=== PATIENT | male | born 1975 ===

== ENCOUNTER 2019-11-25 15:41 | Inpatient (IN) | payer SELFPAY ==
[2019-11-25] VITALS (7 sets, daily range): BP systolic 117–166; BP diastolic 75–102; PULSE 85–100; RESP 14–22; TEMP 35.7–36.6; O2SAT 100; BMI 19.3
--- NOTE | ~2019-11-25 | XR_ITS ---
EXAMINATION: XR chest 1V portable 11/25/2019 17:55 INDICATION: Chest pain. Hypertension. PROCEDURE: 2 view chest COMPARISON: No prior studies for comparison. FINDINGS: The lungs are clear. The cardiomediastinal silhouette is within normal limits. There are no pleural effusions. There is no pneumothorax suspected. IMPRESSION: 1: NO ACUTE CARDIOPULMONARY DISEASE. Reviewed, dictated and finalized at location A.
--- NOTE | ~2019-11-25 | CT_ITS ---
EXAMINATION: CT abdomen pelvis w con DATE: 11/25/2019 17:28 INDICATION: Diffuse abdominal pain TECHNIQUE: Computed tomography (CT) of the abdomen and pelvis was performed with 100 cc Omnipaque 350 intravenous contrast. The dose-length product was 255.46 mGy-cm. Automated exposure control and iter ative reconstruction technique were employed. COMPARISON: None. FINDINGS: Lung bases are unremarkable. Heart size normal. No significant vascular abnormality. There are bilateral hip arthroplasties. No lymphadenopathy. Focal fatty infiltration of the liver near the falciform ligament. The spleen, pancreas, adrenal glan ds are unremarkable. There is bilateral renal cortical scarring with mild bilateral ureterectasis. Mo derate distention of the bladder. There is a large amount of gas throughout the colon, although no ob struction. There is an ileocecal anastomosis. No free air or free fluid. No abnormal pelvic masses or fluid collections. No acute osseous abnormality. IMPRESSION: 1. Moderate bladder distention, nonspecific. Mild bilateral ureterectasis. 2: Moderate gas in the colon without obstruction, possibly ileus. Reviewed, dictated and finalized at location A.
--- NOTE | 2019-11-25 15:56 | ED.RECABL ---
HPI - Recheck/Abnormal Lab/Rx General Chief Complaint: Recheck/Abnormal Lab/Rx Stated Complaint: high blood sugar Time Seen by Provider: 11/25/19 15:53 Source: patient and family (Girlfriend) Mode of arrival: ambulatory Limitations: no limitations History of Present Illness HPI narrative: A 44 y/o male presents to the ED with c/o high blood sugar. Pt states that he has a PMHx diabetes and takes Insulin daily. The patient's girlfriend adds that he took all of his medication this morning. He reports diffuse ABD pain and diarrhea, but denies vomiting, bloody stools, and fever. He states that the diarrhea started yesterday and he had 3 episodes today. Pt had intestinal surgery in June 2019. He has a PMHx of diabetes and is a smoker. MD complaint: other (High blood sugar) Description of abnormal result: High blood sugar Associated symptoms: abdominal pain and other (Diarrhea) Treatments prior to arrival: other medications (Insulin) Related Data Home Medications Medication Instructions Recorded Confirmed gabapentin 400 mg PO TID 11/25/19 insulin detemir U-100 [Levemir 10 unit SUBCUT BID 11/25/19 U-100 Insulin] insulin glargine [Lantus U-100 12 unit SUBCUT QPM 11/25/19 Insulin] insulin lispro [Humalog U-100 0 - 5 sliding scale dose SUBCUT 11/25/19 Insulin] USEASDIRECTD insulin regular human [Novolin R 10 unit SUBCUT TID 11/25/19 Flexpen] levothyroxine 75 mcg PO DAILY 11/25/19 pantoprazole 40 mg PO QAM 11/25/19 Allergies Allergy/AdvReac Type Severity Reaction Status Date / Time No Known Allergies Allergy Verified 11/25/19 15:57 Review of Systems Review of Systems: All systems reviewed & are unremarkable except as noted in HPI and below Constitutional: Constitutional: Denies fever(s) Gastrointestinal: Gastrointestinal: Reports abdominal pain, Denies hematochezia, Reports diarrhea and Denies vomiting PMF Past Medical History Medical History (Updated 11/25/19 @ 18:15 by Lisa Chino MD) Diabetes Surgical History Surgical History (Updated 11/25/19 @ 15:59 by Christal Downey) History of intestinal surgery Social History Social History (Updated 11/25/19 @ 16:01 by Christal Downey) Smoking packs per day: 2 Smoking cigarettes per day: 40.0 Smoking status: Heavy tobacco smoker Tobacco type: cigarettes Second hand tobacco smoke exposure: Yes Substance use: current Gender identity (if verbalized by the patient): Male Exam Const: General: alert and ill appearing chronically; No diaphoretic Orientation/consciousness: patient oriented x3 Other: patient moaning in pain HENMT: Head: normocephalic and atraumatic Teeth and gingiva: abnormal tooth and associated gingiva Eyes: Conjunctivae: conjunctivae normal Pupils: Equal, round and reactive pupils present Chest: Chest palpation & inspection: normal inspection of the chest Resp: Effort & Inspection: normal respiratory effort, no retractions and no use of accessory muscles Auscultation: clear to auscultation bilaterally Cardio: Rate: regular rate Rhythm: regular rhythm Heart sounds: no murmurs GI: Inspection: non-distended Auscultation: normal bowel sounds Other: Diffuse abdominal tenderness. Course Reevaluation(s) Reevaluation #1: Patient has EKG that shows St elevation to II, III, AVF and V3, V4. Patient on arrival states he has abdominal pain and patient now reports states he has pain across his chest. I asked patient when it started and he was reluctant to answer. There is no EKG to compare. Patient is poor historian . STEMI activated since patient told me and nurse that he has chest pain. This may just be related to hyperglycemia but with patient complainting chest pain with speak with cardiology about possible STEMI Date: 11/25/19 Time: 16:50 Consultations Consultation #1: Dr. Waggoner came to ER to see patient and EKG. HE states he is not taking patient to laboratory veterinarian and this is not acute STEMI. Date:
--- NOTE | 2019-11-25 16:05 | ECG_ITS ---
Measurements Intervals Raymond Rate: 78 P: 78 HI: 218 QRS: 69 QRSD: 80 T: 79 QT: 384 QTc: 439 Interpretive Statements SINUS RHYTHM WITH FIRST DEGREE AV BLOCK CANNOT RULE OUT SEPTAL INFARCT, AGE INDETERMINATE ST ELEVATION IN ANTEROLAT/INF LEADS- PROBABLY EARLY REPOLARIZATION ABNORMAL ECG Electronically Signed On 11-25-2019 17:32:51 CDT by Ang Collins D.O.
[2019-11-25 16:11] LABS: Glucose Point of Care > 500 (65-105)
[2019-11-25] MEDS: ONDANSETRON INJ 4 MG/2 ML VIAL IV PUSH (16:25)
[2019-11-25] MEDS: LACTATED RINGERS 1,000 ML 999 ML IV CONT ×2 (16:26→17:35)
[2019-11-25] MEDS: MORPHINE SULFATE 4 MG/ML INJ IV PUSH (16:26)
[2019-11-25 16:47] LABS: Alveolar/Arterial O2 Gradient 5.4 mmHg; Base Excess ABG -4.1 mEq/l (+/-2.0); Carboxyhemoglobin 0.3 % THb (0-2.0); Fractional Inspired Oxygen 21 %; HCO3 ABG 16.7 mEq/l (22.0-26.0); Oxygen Content ABG 16.1 %vol (16.0-22.0); Oxygen Saturation ABG 98.8 % (95.0-100.0); Oxyhemoglobin 97.4 % THb (90.0-100.0); PO2 FiO2 Ratio Arterial Blood 5.71 %; Reduced Hemoglobin 2.3 %THb (0-5.0); Total Hemoglobin 11.6 g/dL (12.0-18.0)
[2019-11-25 16:48] LABS: Add Urine Microscopic? YES; Appearance Urine Clear (Clear); Bilirubin Urine Negative (Negative); Blood Urine Negative (Negative); Color Urine Colorless (Yellow); Glucose Urine UA 3+ mg/dL (Negative); Ketones Urine Trace mg/dL (Negative); Leukocyte Esterase Ur Negative LEU/UL (Negative); Mucus Urine Rare /lpf; Nitrate Urine Negative (Negative); Protein Urine Negative (Negative); RBC Urine 0-2 /hpf (0-2); Specific Grav Ur 1.025 (1.001-1.035); Urobilinogen Urine Negative mg/dL (<2.0)
[2019-11-25 16:48] LABS: Hemoglobin 11.6 g/dL (14.0-18.0); Mean Corpuscular HGB Conc 29.7 g/dl (32-36); Mean Corpuscular Hemoglobin 30.1 pg (26-34); Mean Corpuscular Volume 101.3 fl (80-100); Mean Platelet Volume 12.4 fl (7.4-10.4); Platelet Count Result 362 k/mm3 (150-375); Red Blood Count 3.85 M/mm3 (4.6-6.20); Red Cell Distribution Width 17.5 % (11.5-14.5); White Blood Count 6.7 K/mm3 (4.5-10.0)
[2019-11-25 16:49] LABS: Device ROOM AIR; PCO2 ABG 20.3 mmHg (35.0-45.0); Site Drawn LEFT BRACHIAL; pH ABG 7.532 (7.350-7.450)
[2019-11-25 16:52] LABS: Lactic Acid Reflex 4.4 mmol/L (0.7-2.1)
[2019-11-25 16:53] LABS: Alanine Aminotransferase 63 U/L (4-50); Albumin Level 4.7 g/dL (3.5-5.1); Alkaline Phosphatase 779 U/L (38-126); Aspartate Amino Transferase 38 U/L (17-59); Bilirubin,Total 1.1 mg/dL (0.2-1.3); Blood Urea Nitrogen 32 mg/dL (9-20); Carbon Dioxide 20 mmol/L (22-30); Chloride 86 mmol/L (98-107); Estimated CRCL calculation 49 ml/min; Estimated Glomerular Filt Rate 48; Lipase 68 U/L (23-300); Magnesium 2.2 mg/dL (1.6-2.3); Phosphorus 3.6 mg/dL (2.5-4.5); Potassium 5.5 mmol/L (3.4-5.0); Sodium 124 mmol/L (137-145)
--- NOTE | 2019-11-25 16:54 | PC.NURSE ---
STEMI CALLED PER DR. NEELY AT 1641. SEE STEMI ORDER SHEET FOR FURTHER MEDICATION ADMINISTRATION.
[2019-11-25 16:56] LABS: Beta-Hydroxybutyrate/Acetoacetate 2.56 mmol/L (0.02-0.27)
--- NOTE | 2019-11-25 16:56 | ECG_ITS ---
Measurements Intervals [place] Rate: 84 P: 81 GA: 217 QRS: 78 QRSD: 76 T: 83 QT: 379 QTc: 450 Interpretive Statements SINUS RHYTHM WITH FIRST DEGREE AV BLOCK CANNOT RULE OUT SEPTAL INFARCT, AGE INDETERMINATE ST ELEVATION IN ANT/INF LEADS- PROBABLY EARLY EARLY REPOLARIZATION BASELINE ARTIFACT- I, II, III, AVR, AVL, AVF ABNORMAL ECG Electronically Signed On 11-25-2019 17:33:55 CDT by Ang Collins D.O.
[2019-11-25 17:03] LABS: Monocytes Absolute Manual 0.26 K/mm3 (0.1-0.90); Monocytes Percent Manual 4 % (3-9); Neutrophils Percent Manual 90 % (46-73); Platelet Estimate Adequate (Adequate); Total Cells Counted 100
[2019-11-25 17:05] LABS: Troponin I < 0.012 ng/mL (0.000-0.034)
[2019-11-25] MEDS: SODIUM CHLORIDE 0.9% IV 1,000 ML 999 ML IV CONT ×4 (17:05→21:51)
[2019-11-25 17:14] LABS: Glucose 1455 mg/dL (75-110)
[2019-11-25 17:37] LABS: Hemoglobin A1C 13.4 % (<5.7)
[2019-11-25] MEDS: INSULIN HUMAN REGULAR (*BKC) 100 UNITS in SODIUM CHLORIDE 0.9% IV 99 ML 27.9 UNITS IV CONT (17:39)
[2019-11-25] MEDS: INSULIN HUMAN REGULAR (*BKC) 100 UNITS/ML 6 UNITS IV PUSH (17:41)
[2019-11-25 18:33] LABS: Blood Urea Nitrogen 28 mg/dL (9-20); Calcium 9.4 mg/dL (8.4-10.2); Carbon Dioxide 23 mmol/L (22-30); Chloride 96 mmol/L (98-107); Estimated CRCL calculation 56 ml/min; Estimated Glomerular Filt Rate 56; Potassium 3.3 mmol/L (3.4-5.0); Sodium 137 mmol/L (137-145); Triglycerides 198 mg/dL (<150)
[2019-11-25 18:42] LABS: Glucose 906 mg/dL (75-110)
--- NOTE | 2019-11-25 18:50 | ADMGEN ---
This patient, Keegan Balnd, was admitted to Intensive Care Unit-5. Patient/family oriented to hospital policies and general routines including ID bracelet, bed and alarms, visiting hours, pain management, procedures, bathroom and other care routines, personal items, smoking policy, room service/diet, and visiting hours. Valuables list has been completed. Information on how to activate the Rapid Response Team has been discussed. Patient/Family are encouraged to report perceived risks to care and to ask questions if they do not understand what they are told or what they should do.
[2019-11-25 18:57] LABS: Glucose Point of Care > 500 (65-105)
--- NOTE | 2019-11-25 19:31 | PM.IMHP ---
H&P: HPI History of Present Illness Chief complaint: HYPERGLYCEMIA,DIFFUSE ABDOMINAL PAIN,CHEST PAIN Narrative: This is a 44 year old Diabetic male who presented to the hospital today with his significant other secondary to elevated blood sugar. His significant other mentions that the patient has a history of multiple recent hospitlizations for poorly controlled diabetes that has resulted in various ICU admissions. His last hospitalization was in [place] and was at the end of October of this year. Today she noticed that the patient had a fruit like odor on his breath and that his blood glucose was elevated. She was told during his last hospitalization that she should bring him to the hospital if she notices him having a fruit like odor on his breath. The patient did complaint to the ER staff that he had diffuse abdominal pain and does have a history of bowel perforation with #4 bowel surgeries. His last surgery was in June of this past year. On my encounter with the patient he is somewhat obtunded and cannot reliably answer my questions. He can tell me his name but that is about it. His significant other denies that the patient has had any nausea, vomiting, or diarrhea although it appears that the patient had reported to the ER staff that he had #3 episodes of diarrhea yesterday. He has supposedly been taking his insulin and he is known to have a random blood glucose in the 200-300 range usually. While in the ER today the patient apparently had chest pain and EKG was questionable for possible ST segment elevation. Cardiology was consulted by ER provider . Review of Systems Review of Systems: All systems reviewed & are unremarkable except as noted in HPI and below PMFSH Past Medical History Medical History Diabetes Surgical History Surgical History History of intestinal surgery Social History Social History Smoking packs per day: 2 Smoking cigarettes per day: 40.0 Smoking status: Current every day smoker Tobacco type: cigarettes Second hand tobacco smoke exposure: Yes Alcohol intake: former Substance use: current Substance use type: marijuana Gender identity (if verbalized by the patient): Male Spiritual care concerns: No Agree to blood products: Yes Comments Family history is not obtainable from the patient at this time. Meds Home Medications and Allergies Home Medications Medication Instructions Recorded Confirmed Type gabapentin 400 mg PO TID 11/25/19 11/25/19 History insulin glargine [Lantus U-100 12 unit SUBCUT QPM 11/25/19 11/25/19 History Insulin] insulin lispro [Humalog U-100 0 - 5 sliding scale dose SUBCUT 11/25/19 11/25/19 History Insulin] USEASDIRECTD insulin regular human [Novolin R 10 unit SUBCUT TID 11/25/19 11/25/19 History Flexpen] levothyroxine 75 mcg PO DAILY 11/25/19 11/25/19 History pantoprazole 40 mg PO QAM 11/25/19 11/25/19 History Allergies Allergy/AdvReac Type Severity Reaction Status Date / Time No Known Allergies Allergy Verified 11/25/19 15:57 Vital Signs Vital Signs - 24 hr 11/25/19 15:53 11/25/19 16:51 11/25/19 17:34 Temperature 35.7 C L 35.7 C L Pulse Rate 93 85 Respiratory Rate 22 H 20 Blood Pressure 117/75 125/84 Pulse Oximetry 100 100 11/25/19 18:05 11/25/19 19:00 Temperature 36.6 C Pulse Rate 92 96 Respiratory Rate 18 18 Blood Pressure 141/90 H 166/87 H Pulse Oximetry 100 100 Exam Const: General: cooperative, alert, awake, confusion and other (dehydrated++ ) Nutritional Appearance: thin Orientation/consciousness: oriented to person HENMT: Head: normal to inspection General nose exam: Normal external nose present Face and sinus: normal facial exam Mouth: Yes Normal oral and palatal mucosa present and Yes oropharynx normal Eyes: Pupils:
[2019-11-25 19:35] LABS: Reflex Lactic Acid Yes or No Add Lactic
[2019-11-25 20:19] LABS: Glucose 336 mg/dL (75-110)
[2019-11-25 20:21] LABS: Lactic Acid 10.2 mmol/L (0.7-2.1)
[2019-11-25 20:30] LABS: Troponin I < 0.012 ng/mL (0.000-0.034)
[2019-11-25] MEDS: SODIUM CHLORIDE 0.9% IV 1,000 ML 150 ML IV CONT (20:43)
[2019-11-25 21:20] LABS: Glucose Point of Care 346 (65-105)
[2019-11-25] MEDS: INSULIN HUMAN REGULAR (*BKC) 100 UNITS in SODIUM CHLORIDE 0.9% IV 99 ML 11 UNITS IV CONT (22:19)
[2019-11-25] MEDS: DEXTROSE 50% 25 GM/50 ML SYRINGE IV PUSH (22:32)
[2019-11-25 22:43] LABS: Glucose Point of Care 27 (65-105)
[2019-11-25 22:43] LABS: Glucose Point of Care 248 (65-105)
[2019-11-25 22:43] LABS: Glucose Point of Care 30 (65-105)
[2019-11-25 23:43] LABS: Glucose Point of Care 93 (65-105)
[2019-11-25] MEDS: KCL 20 MEQ/D5/0.45% SOD CHL 1,000 ML 150 ML IV CONT (23:51)
[2019-11-26] VITALS (10 sets, daily range): BP systolic 98–149; BP diastolic 51–116; PULSE 67–85; RESP 13–20; TEMP 35.9–36.6; O2SAT 97–100
[2019-11-26 00:43] LABS: Lactic Acid 3.3 mmol/L (0.7-2.1)
[2019-11-26 00:59] LABS: Troponin I < 0.012 ng/mL (0.000-0.034)
[2019-11-26 01:23] LABS: Blood Urea Nitrogen 20 mg/dL (9-20); Calcium 9.5 mg/dL (8.4-10.2); Carbon Dioxide 27 mmol/L (22-30); Chloride 113 mmol/L (98-107); Estimated CRCL calculation 55 ml/min; Estimated Glomerular Filt Rate > 60; Glucose 35 mg/dL (75-110); Potassium 3.2 mmol/L (3.4-5.0); Sodium 148 mmol/L (137-145)
[2019-11-26 01:24] LABS: Glucose Point of Care 51 (65-105)
[2019-11-26] MEDS: GLUCOSE ORAL GEL 15 GM OF GLUCSE IN 37.5 GM TUBE PO (01:36)
[2019-11-26 01:50] LABS: Glucose Point of Care 77 (65-105)
[2019-11-26 03:15] LABS: Glucose Point of Care 92 (65-105)
[2019-11-26 05:37] LABS: Blood Urea Nitrogen 18 mg/dL (9-20); Calcium 8.5 mg/dL (8.4-10.2); Carbon Dioxide 26 mmol/L (22-30); Chloride 107 mmol/L (98-107); Estimated CRCL calculation 66 ml/min; Estimated Glomerular Filt Rate > 60; Glucose 47 mg/dL (75-110); Potassium 4.6 mmol/L (3.4-5.0); Sodium 140 mmol/L (137-145)
[2019-11-26 05:45] LABS: Glucose Point of Care 147 (65-105)
[2019-11-26] MEDS: KCL 20 MEQ/D5/0.45% SOD CHL 1,000 ML 150 ML IV CONT (06:16)
[2019-11-26 07:02] LABS: Amphetamine Screen Urine Positive (Negative); Barbiturate Screen Urine Negative (Negative); Benzodiazepines Screen Urine Negative (Negative); Cannabinoid Screen Urine Negative (Negative); Cocaine Screen Urine Negative (Negative); Methadone Screen Urine Negative (Negative); Opiate Screen Urine Positive (Negative); Phencyclidine Screen Urine Negative (Negative)
[2019-11-26 08:23] LABS: Free T4 Free Thyroxine Reflex 1.27 ng/dL (0.78-2.19)
[2019-11-26 08:26] LABS: Glucose Point of Care 343 (65-105)
--- NOTE | 2019-11-26 08:29 | PM.IMPN ---
Progress Note: A&P Assessment and Plan (1) DKA (diabetic ketoacidoses): Qualifiers: Diabetes mellitus type: type 2 Diabetes mellitus complication detail: without coma Qualified Code(s): E11.10 - Type 2 diabetes mellitus with ketoacidosis without coma Code(s): E11.10 - Type 2 diabetes mellitus with ketoacidosis without coma Status: Acute Assessment and Plan: Known poor control. Hemoglobin A1c 13.4. DKA protocol initiated on presentation. Has already had closure of anion gap with transition to subcutaneous insulin from IV insulin. Had hypoglycemia this morning with protocol followed. Diet now allowed. Appreciate input from blank driller. Monitor glucose this morning. As long as improving, anticipate transfer from ICU later today. Adjust insulin as needed. (2) Acute metabolic encephalopathy: Code(s): G93.41 - Metabolic encephalopathy Status: Resolved Assessment and Plan: Result of DKA and dehydration. Patient now appears to be back to his baseline. Urine drug screen on presentation was positive for amphetamines and opiates. Will continue to monitor. (3) Acute renal failure: Qualifiers: Acute renal failure type: unspecified Qualified Code(s): N17.9 - Acute kidney failure, unspecified Code(s): N17.9 - Acute kidney failure, unspecified Status: Resolved Assessment and Plan: Result of DKA and dehydration. Now resolved. Creatinine 1.00. Will monitor. (4) Dehydration: Code(s): E86.0 - Dehydration Status: Acute Assessment and Plan: Improved. Continue IV fluids. (5) Acidosis, lactic: Code(s): E87.2 - Acidosis Status: Acute Assessment and Plan: Likely secondary to acute dehydration. Peaked at 10.2. Now back down to 3.3. Will continue to monitor. (6) Abnormal ECG: Code(s): R94.31 - Abnormal electrocardiogram [ECG] [EKG] Status: Acute Assessment and Plan: The patient had ST segment elevation in inferior leads on EKG which is likely repolarization. Cardiology was consulted by ER provider and did evaluate patient in ER. Per Cardiology, no STEMI. Serial troponin levels negative. Telemetry reviewed on 11/26/2019 with sinus rhythm. (7) Hypothyroidism: Qualifiers: Hypothyroidism type: unspecified Qualified Code(s): E03.9 - Hypothyroidism, unspecified Code(s): E03.9 - Hypothyroidism, unspecified Status: Acute Assessment and Plan: TSH is elevated at 16.500. Will need to check with patient if he has been taking thyroid medication regularly. In the meantime, will continue current levothyroxine. Can increase dose if needed. (8) Abdominal pain, diffuse: Code(s): R10.84 - Generalized abdominal pain Status: Acute Assessment and Plan: Recent surgery in June 2019 in [place] with records requested. No further abdominal pain. CT abdomen/pelvis with moderate bladder distention and moderate gas and colon without obstruction. Will monitor. (9) DVT prophylaxis: Code(s): Z29.9 - Encounter for prophylactic measures, unspecified Status: Acute Assessment and Plan: SCDs. Time Spent With Patient Time with patient: 15 - 25 minutes Subjective Date/time seen: 11/26/19 08:29 Interval history: Date of Service: 11/26/2019. Admitted with DKA. Significant other present. Patient reports only moved to this area 1 week ago from [place]. Known to have problems with glucose control. Feels much better this morning. Hungry. Only abdominal pain is from hunger. No chest pain. No shortness of breath. No headache or dizziness. Review of Systems Review of Systems: Narrative: Feeling better. Will Constitutional: Constitutional: Denies chills and Denies fever(s) ENT: Denies dysphagia Cardiovascular: Cardiovascular: Denies chest pain Respiratory: Respiratory: Denies dyspnea Gastrointestinal: Gastrointestinal: Denies abdomin
[2019-11-26 08:48] LABS: Hemoglobin A1C 13.1 % (<5.7)
--- NOTE | 2019-11-26 08:59 | WPDCNINT ---
Assessment and Plan Assessment and plan (1) Acute renal failure: Qualifiers: Acute renal failure type: unspecified Qualified Code(s): N17.9 - Acute kidney failure, unspecified Code(s): N17.9 - Acute kidney failure, unspecified Status: Resolved Assessment and Plan: [place] prerenal which has resolved with IV fluid resuscitation. (2) Acidosis, lactic: Code(s): E87.2 - Acidosis Status: Acute Assessment and Plan: unclear etiology. His abdominal exam is benign. He is not having any significant tenderness. Will repeat it. He has been resuscitated with IV fluids. (3) Dehydration: Code(s): E86.0 - Dehydration Status: Acute Assessment and Plan: Likely because of significant hyperglycemia with glycosuria. He has been resuscitated and has a net positive fluid balance of 8.7 L (4) DKA (diabetic ketoacidoses): Qualifiers: Diabetes mellitus complication detail: without coma Diabetes mellitus type: type 2 Qualified Code(s): E11.10 - Type 2 diabetes mellitus with ketoacidosis without coma Code(s): E11.10 - Type 2 diabetes mellitus with ketoacidosis without coma Status: Acute Assessment and Plan: He has minimal anion gap with minimal decrease in the bicarb. ABG did not show any acidosis. He was started on IV fluid along with IV insulin drip. It has been stopped it around 1:30 a.m. today after anion gap metabolic acidosis has resolved. He had an episode of hypo glycemia today in the morning. He will be eating his breakfast. I will resume his Levemir 10 units twice a day. Seems to be on Lantus 12 units at nighttime which seems a bit strange. I will not order it at this time. Continue insulin sliding scale. (5) Acute hyperglycemia: Code(s): R73.9 - Hyperglycemia, unspecified Status: Acute Assessment and Plan: Continue his home regimen of insulin but will not order Lantus. Insulin sliding scale. (6) Abdominal pain, diffuse: Code(s): R10.84 - Generalized abdominal pain Status: Acute Assessment and Plan: Likely as a result of DKA. He is complaining of some urinary symptoms but urine analysis is negative for any signs of infection. (7) Acute metabolic encephalopathy: Code(s): G93.41 - Metabolic encephalopathy Status: Resolved Assessment and Plan: Likely as a result of metabolic abnormalities. Now he seems to be at his baseline. Additional Plan He will be downgraded to floor status later today if he remains stable and does not continue to have Hypo and hyperglycemia. Historic Sites Registrar Consult Note Consult date: 11/26/19 Time Seen: 11:00 HPI: Keegan Bland is a 44 year old male With past medical history of poorly-controlled diabetes mellitus who presented to the hospital with elevated blood sugar and abdominal pain. As per the family, he has multiple admission to the hospital including ICU for complications associated with diabetes mellitus. He is on insulin regimen with Levemir 10 units twice a day, Lantus 12 units at bedtime and Humulin R as per sliding scale. He denied to have miss any doses. He was complaining of abdominal pain which is mostly low or associated with dysuria and burning sensation at the time micturition. He was nauseous but no vomiting. He had few surgeries for perforated viscus at [facility]. He also mentioned to have some chest pain in the emergency department but denied to have any continued pain with me today in the ICU. There was concern for ST elevation in lead 2 3 AVF V3 and V4. Cardiology was consulted in the emergency department who did not feel that he has STEMI and other things that might be having a repolarization. He was started on insulin drip and IV fluids. He had anion gap but bicarb was 20 and was not acidotic on ABG. last night around 130 a.m., his anion gap has closed and insulin drip was stopped. He had an ep
[2019-11-26] MEDS: INSULIN ASPART (*BKC) 100 UNITS/ML SUB-Q ×2 (09:13→13:16)
[2019-11-26] MEDS: PANTOPRAZOLE 40 MG TABLET PO (09:15)
[2019-11-26] MEDS: LEVOTHYROXINE SODIUM 75 MCG TABLET PO (09:15)
[2019-11-26] MEDS: INSULIN DETEMIR 100 UNITS/ML 10 UNITS SUB-Q (09:15)
--- NOTE | 2019-11-26 09:27 | WPDCN ---
HPI Data of Consult Date/Time: 11/26/19 09:27 Requesting Physician: Melinda Irizarry MD Primary Care Provider: [facility] [facility] PHYSICIAN Consult Narrative Narrative: Keegan Bland is a 44 year old male [facility] Past Medical History Medical History Diabetes Surgical History Surgical History History of intestinal surgery Social History Social History Smoking packs per day: 2 Smoking cigarettes per day: 40.0 Smoking status: Current every day smoker Tobacco type: cigarettes Second hand tobacco smoke exposure: Yes Alcohol intake: former Substance use: current Substance use type: marijuana Gender identity (if verbalized by the patient): Male Spiritual care concerns: No Agree to blood products: Yes Meds Home Medications and Allergies Home Medications Medication Instructions Recorded Confirmed Type gabapentin 400 mg PO TID 11/25/19 11/25/19 History insulin glargine [Lantus U-100 12 unit SUBCUT QPM 11/25/19 11/25/19 History Insulin] insulin lispro [Humalog U-100 0 - 5 sliding scale dose SUBCUT 11/25/19 11/25/19 History Insulin] USEASDIRECTD insulin regular human [Novolin R 10 unit SUBCUT TID 11/25/19 11/25/19 History Flexpen] levothyroxine 75 mcg PO DAILY 11/25/19 11/25/19 History pantoprazole 40 mg PO QAM 11/25/19 11/25/19 History Allergies Allergy/AdvReac Type Severity Reaction Status Date / Time No Known Allergies Allergy Verified 11/25/19 15:57 Vital Signs Vital Signs - 24 hr 11/25/19 15:53 11/25/19 16:51 11/25/19 17:34 Temperature 96.2 F L 96.2 F L Pulse Rate 93 85 Respiratory Rate 22 H 20 Blood Pressure 117/75 125/84 Pulse Oximetry 100 100 11/25/19 18:05 11/25/19 19:00 11/25/19 20:00 Temperature 97.9 F 97.7 F Pulse Rate 92 96 90 Respiratory Rate 18 18 14 Blood Pressure 141/90 H 166/87 H 155/102 H Pulse Oximetry 100 100 100 11/25/19 21:35 11/26/19 00:00 11/26/19 01:54 Temperature 97.7 F Pulse Rate 94 77 71 Respiratory Rate 19 14 14 Blood Pressure 155/102 H 105/70 98/74 L Pulse Oximetry 100 97 100 11/26/19 04:00 11/26/19 05:33 Temperature 96.7 F L Pulse Rate 81 67 Respiratory Rate 20 13 Blood Pressure 149/116 H 119/92 H Pulse Oximetry 100 100 Results Labs CBC & Chem 7: 11/25/19 16:28 11/26/19 04:20 Labs: Short CBC 11/25/19 Range/Units 16:28 WBC 6.7 (4.5-10.0) K/mm3 Hgb 11.6 L (14.0-18.0) g/dL Hct 39.0 L (42.0-52.0) % Plt Count 362 (150-375) k/mm3 BMP 11/25/19 11/25/19 11/25/19 16:28 18:13 20:00 Sodium 124 L 137 Potassium 5.5 H 3.3 L Chloride 86 L 96 L Carbon Dioxide 20 L 23 BUN 32 H 28 H Creatinine 1.60 H 1.40 H Glucose 1455 H* 906 H* 336 H Calcium 10.0 9.4 11/26/19 11/26/19 00:21 04:20 Sodium 148 H 140 Potassium 3.2 L 4.6 Chloride 113 H 107 Carbon Dioxide 27 26 BUN 20 18 Creatinine 1.20 1.00 Glucose 35 L* 47 L* Calcium 9.5 8.5 Cardiac Enzymes 11/25/19 11/25/19 11/26/19 Range/Units 16:28 20:00 00:21 Troponin I < 0.012 < 0.012 < 0.012 (0.000-0.034) ng/mL Liver Function 11/25/19 Range/Units 16:28 Total Bilirubin 1.1 (0.2-1.3) mg/dL AST 38 (17-59) U/L ALT 63 H (4-50) U/L Alkaline Phosphatase 779 H (38-126) U/L Albumin 4.7 (3.5-5.1) g/dL Urine 11/25/19 Range/Units 16:14 Urine Color Colorless (Yellow) Urine Appearance Clear (Clear) Urine pH 6.0 (5.0-9.0) Ur Specific [place] 1.025 (1.001-1.035) Urine Protein Negative (Negative) mg/dL Urine Glucose (UA) 3+ H (Negative) mg/dL EKG sent yesterday were personally reviewed. The for shows NSR rate 78, borderline first-degree AV block, slight ST elevation in V3 with nonspecific ST changes in other leads. The 2nd EKG is similar.
[2019-11-26 09:48] LABS: Total Triiodothyronine (T3) 0.49 NG/ML (0.97-1.69)
[2019-11-26 13:09] LABS: Glucose Point of Care 348 (65-105)
[2019-11-26] MEDS: GABAPENTIN 400 MG CAPSULE PO ×2 (14:00→18:07)
--- NOTE | 2019-11-26 17:08 | PC.NURSE ---
Pt transferred to [address] [place] [address] via [facility]. Bedside report given to Lexi ALLEN. Belongings sent with pt.
[2019-11-26 18:00] LABS: Glucose Point of Care 111 (65-105)
[2019-11-26 18:19] LABS: Glucose Point of Care 125 (65-105)
[2019-11-26] MEDS: INSULIN DETEMIR 100 UNITS/ML 12 UNITS SUB-Q (21:28)
[2019-11-26 22:18] LABS: Glucose Point of Care 201 (65-105)
[2019-11-27 04:42] VITALS: BP 97/71; PULSE 84; RESP 16; TEMP 36.5; O2SAT 99
[2019-11-27 04:42] LABS: Glucose Point of Care 158 (65-105)
[2019-11-27] MEDS: LEVOTHYROXINE SODIUM 75 MCG TABLET PO (05:40)
[2019-11-27 06:24] LABS: Blood Urea Nitrogen 10 mg/dL (9-20); Calcium 7.3 mg/dL (8.4-10.2); Carbon Dioxide 27 mmol/L (22-30); Chloride 101 mmol/L (98-107); Estimated CRCL calculation 65 ml/min; Estimated Glomerular Filt Rate > 60; Glucose 127 mg/dL (75-110); Potassium 3.3 mmol/L (3.4-5.0); Sodium 133 mmol/L (137-145)
[2019-11-27 07:58] LABS: Glucose Point of Care 130 (65-105)
[2019-11-27] MEDS: POTASSIUM CHLORIDE 20 MEQ TABLET 40 MEQ PO (08:00)
[2019-11-27] MEDS: GABAPENTIN 400 MG CAPSULE PO ×3 (08:00→17:10)
[2019-11-27] MEDS: PANTOPRAZOLE 40 MG TABLET PO (08:00)
[2019-11-27] MEDS: INSULIN ASPART (*BKC) 100 UNITS/ML 10 UNITS SUB-Q (08:03)
[2019-11-27 08:04] VITALS: RESP 16; O2SAT 99
[2019-11-27] MEDS: INSULIN DETEMIR 100 UNITS/ML 12 UNITS SUB-Q (08:04)
--- NOTE | 2019-11-27 08:58 | PM.IMPN ---
Progress Note: A&P Assessment and Plan (1) DKA (diabetic ketoacidoses): Qualifiers: Diabetes mellitus type: type 2 Diabetes mellitus complication detail: without coma Qualified Code(s): E11.10 - Type 2 diabetes mellitus with ketoacidosis without coma Code(s): E11.10 - Type 2 diabetes mellitus with ketoacidosis without coma Status: Acute Assessment and Plan: Known poor control. Hemoglobin A1c 13.4. DKA protocol initiated on presentation and completed. Transferred from ICU to medical floor yesterday. Is currently on Levemir q.12 hours. Does also have scheduled NovoLog with meals. Sliding scale insulin also available period patient mentions to me this morning he does have problems with hypoglycemia. Will recheck glucose level approximately 1 hour after receiving insulin this morning. Will hold scheduled mealtime insulin for now. With patient having brittle diabetes, would like for him to at least see the dietitian before discharge. Will not be able to see dietitian until tomorrow. nutrition educator not available tomorrow and may need to see as an outpatient. Will adjust insulin as needed. (2) Diabetes: Qualifiers: Diabetes mellitus type: type 2 Diabetes mellitus superintendent terminal insulin use: with detention use Diabetes mellitus complication status: with hyperglycemia Qualified Code(s): E11.65 - Type 2 diabetes mellitus with hyperglycemia; Z79.4 - residential (current) use of insulin Code(s): E11.9 - Type 2 diabetes mellitus without complications Status: Acute Assessment and Plan: Treatment of diabetes as noted above. (3) Hypokalemia: Code(s): E87.6 - Hypokalemia Status: Acute Assessment and Plan: Potassium 3.3 today with oral replacement given. Will continue to monitor and replace as needed. (4) Acute metabolic encephalopathy: Code(s): G93.41 - Metabolic encephalopathy Status: Resolved Assessment and Plan: Result of DKA and dehydration. Now resolved. Urine drug screen on presentation was positive for amphetamines and opiates. Will continue to monitor. (5) Acute renal failure: Qualifiers: Acute renal failure type: unspecified Qualified Code(s): N17.9 - Acute kidney failure, unspecified Code(s): N17.9 - Acute kidney failure, unspecified Status: Resolved Assessment and Plan: Result of DKA and dehydration. Now resolved. Creatinine 1.20 today. Will monitor. (6) Dehydration: Code(s): E86.0 - Dehydration Status: Resolved Assessment and Plan: Resolved. IV fluids stopped. (7) Hypothyroidism: Qualifiers: Hypothyroidism type: unspecified Qualified Code(s): E03.9 - Hypothyroidism, unspecified Code(s): E03.9 - Hypothyroidism, unspecified Status: Acute Assessment and Plan: TSH is elevated at 16.500. Patient states he has been taking his levothyroxine. Previously on 150 mcg daily but now on 75. Will increase to 88 mcg. Will need to recheck in 3-4 weeks. (8) Acidosis, lactic: Code(s): E87.2 - Acidosis Status: Acute Assessment and Plan: Likely secondary to acute dehydration. Peaked at 10.2. Now back down to 3.3 on last check but unable to recheck yesterday. Will continue to monitor. (9) Abnormal ECG: Code(s): R94.31 - Abnormal electrocardiogram [ECG] [EKG] Status: Acute Assessment and Plan: The patient had ST segment elevation in inferior leads on EKG which is likely repolarization. Cardiology was consulted by ER provider and did evaluate patient in ER. Per Cardiology, no STEMI. Serial troponin levels negative. No further evaluation needed. (10) Abdominal pain, diffuse: Code(s): R10.84 - Generalized abdominal pain Status: Acute Assessment and Plan: Recent surgery in June 2019 in [place] with records requested but not yet received. No further abdominal pain. CT abdomen/pelvis
[2019-11-27] MEDS: IBUPROFEN 400 MG TABLET PO ×3 (09:22→22:43)
[2019-11-27 09:34] LABS: Glucose Point of Care 157 (65-105)
[2019-11-27 10:17] LABS: Glucose Point of Care 107 (65-105)
[2019-11-27 12:54] LABS: Glucose Point of Care 112 (65-105)
[2019-11-27 12:54] LABS: Glucose Point of Care 72 (65-105)
[2019-11-27 14:00] VITALS: BP 110/72; PULSE 80; RESP 18; TEMP 36.4; O2SAT 100
[2019-11-27 17:10] LABS: Glucose Point of Care 225 (65-105)
[2019-11-27] MEDS: INSULIN ASPART (*BKC) 100 UNITS/ML SUB-Q (17:12)
[2019-11-27 21:00] LABS: Glucose Point of Care 140 (65-105)
[2019-11-27 21:14] VITALS: BP 110/78; PULSE 77; RESP 16; TEMP 36.6; O2SAT 100
[2019-11-27 23:43] VITALS: TEMP 36.6
[2019-11-28] MEDS: LEVOTHYROXINE SODIUM 88 MCG TABLET PO (05:41)
[2019-11-28] MEDS: IBUPROFEN 400 MG TABLET PO ×2 (05:41→14:33)
[2019-11-28 05:50] VITALS: BP 115/69; PULSE 82; RESP 16; TEMP 36.6; O2SAT 99
[2019-11-28 06:33] LABS: Blood Urea Nitrogen 12 mg/dL (9-20); Calcium 6.9 mg/dL (8.4-10.2); Carbon Dioxide 27 mmol/L (22-30); Chloride 100 mmol/L (98-107); Estimated CRCL calculation 65 ml/min; Estimated Glomerular Filt Rate > 60; Glucose 435 mg/dL (75-110); Lactic Acid 2.4 mmol/L (0.7-2.1); Potassium 4.5 mmol/L (3.4-5.0); Sodium 130 mmol/L (137-145)
[2019-11-28 06:41] LABS: Glucose Point of Care 455 (65-105)
[2019-11-28] MEDS: INSULIN HUMAN REGULAR (*BKC) 100 UNITS/ML 8 UNITS SUB-Q (07:33)
[2019-11-28] MEDS: PANTOPRAZOLE 40 MG TABLET PO (08:04)
[2019-11-28] MEDS: GABAPENTIN 400 MG CAPSULE PO ×3 (08:04→16:52)
[2019-11-28] MEDS: INSULIN DETEMIR 100 UNITS/ML 10 UNITS SUB-Q (08:05)
--- NOTE | 2019-11-28 11:16 | PM.IMPN ---
Progress Note: A&P Assessment and Plan (1) DKA (diabetic ketoacidoses): Qualifiers: Diabetes mellitus complication detail: without coma Diabetes mellitus type: type 2 Qualified Code(s): E11.10 - Type 2 diabetes mellitus with ketoacidosis without coma Code(s): E11.10 - Type 2 diabetes mellitus with ketoacidosis without coma Status: Acute Assessment and Plan: Known poor control. Hemoglobin A1c 13.4. DKA protocol initiated on presentation and completed. Transferred from ICU to medical floor on 11/26/2019. Has had problems with control of glucose while here. Levemir q.12 hours resumed this morning but at lower dose. Will not have scheduled mealtime insulin for now. Sliding scale insulin as needed. Did see the dietitian earlier today. tobacco prevention health educator not currently available. Will continue to monitor. Advised patient swelling in hand and foot most likely result of fluid resuscitation needed on presentation. Encouraged ambulation. Will monitor. Hopeful discharge soon. (2) Diabetes: Qualifiers: Diabetes mellitus complication status: with hyperglycemia Diabetes mellitus group home insulin use: with group home use Diabetes mellitus type: type 2 Qualified Code(s): E11.65 - Type 2 diabetes mellitus with hyperglycemia; Z79.4 - intermediate project manager (current) use of insulin Code(s): E11.9 - Type 2 diabetes mellitus without complications Status: Acute Assessment and Plan: Treatment of diabetes as noted above. (3) Hypokalemia: Code(s): E87.6 - Hypokalemia Status: Acute Assessment and Plan: Potassium 4.5 today. Will monitor. Replace if needed. (4) Acute metabolic encephalopathy: Code(s): G93.41 - Metabolic encephalopathy Status: Resolved Assessment and Plan: Result of DKA and dehydration. Now resolved. Urine drug screen on presentation was positive for amphetamines and opiates. Will continue to monitor. (5) Acute renal failure: Qualifiers: Acute renal failure type: unspecified Qualified Code(s): N17.9 - Acute kidney failure, unspecified Code(s): N17.9 - Acute kidney failure, unspecified Status: Resolved Assessment and Plan: Result of DKA and dehydration. Now resolved. Creatinine stable and unchanged at 1.20 today. Will monitor. (6) Dehydration: Code(s): E86.0 - Dehydration Status: Resolved Assessment and Plan: Resolved. (7) Hypothyroidism: Qualifiers: Hypothyroidism type: unspecified Qualified Code(s): E03.9 - Hypothyroidism, unspecified Code(s): E03.9 - Hypothyroidism, unspecified Status: Acute Assessment and Plan: TSH is elevated at 16.500. Patient states he has been taking his levothyroxine. Levothyroxine increased to 88 mcg today. Will need to recheck levels in 3-4 weeks. (8) Acidosis, lactic: Code(s): E87.2 - Acidosis Status: Acute Assessment and Plan: Likely secondary to acute dehydration. Peaked at 10.2. Lactic acid down to 2.4 today. Will not recheck. (9) Abnormal ECG: Code(s): R94.31 - Abnormal electrocardiogram [ECG] [EKG] Status: Acute Assessment and Plan: The patient had ST segment elevation in inferior leads on EKG which is likely repolarization. Cardiology was consulted by ER provider and did evaluate patient in ER. Per Cardiology, no STEMI. Serial troponin levels negative. No further evaluation needed. (10) Abdominal pain, diffuse: Code(s): R10.84 - Generalized abdominal pain Status: Acute Assessment and Plan: Recent surgery in June 2019 in [place] with records requested but not yet received. No further abdominal pain. CT abdomen/pelvis with moderate bladder distention and moderate gas and colon without obstruction. Will monitor. (11) DVT prophylaxis: Code(s): Z29.9 - Encounter for prophylactic measures, unspecified Status: Acute Asses
[2019-11-28] MEDS: INSULIN ASPART (*BKC) 100 UNITS/ML SUB-Q (12:01)
[2019-11-28 12:46] LABS: Glucose Point of Care 266 (65-105)
[2019-11-28 16:00] VITALS: BP 140/62; PULSE 78; RESP 14; TEMP 36.7; O2SAT 98
[2019-11-28 17:39] LABS: Glucose Point of Care 189 (65-105)
--- NOTE | 2019-11-28 19:04 | PC.NURSE ---
Pt wanted to leave AMA, Dr. Yanez, housecalls nurse, and charge nurse notified. Talked to pt and encouraged him to stay, pt still refused. AMA paper signed and IV removed.
== END 2019-11-28 19:10 | disposition left against medical advice (07) | DRG 420 ==
LOC: ANHED 18:15 → ANHICU 22:03 → ANH3MED 11-26 18:01 → ANHICU 12-01 12:47
PROVIDERS: Family Medicine; Internal Medicine Critical Care Medicine; Admitting Provider Family Medicine; Emergency Provider General Practice; Visit Provider Hospitalist
DX: E11.10 Type 2 diabetes mellitus with ketoacidosis without coma (principal); E11.65 Type 2 diabetes mellitus with hyperglycemia; E87.6 Hypokalemia; G93.41 Metabolic encephalopathy; N17.9 Acute kidney failure, unspecified; E86.0 Dehydration; E03.9 Hypothyroidism, unspecified; R10.84 Generalized abdominal pain; R94.31 Abnormal electrocardiogram [ECG] [EKG]; F17.210 Nicotine dependence, cigarettes, uncomplicated; Z79.4 Long term (current) use of insulin
CPT/HCPCS: 36415; 36600; 71045; 74177; 80048; 80053; 80307; 81001; 82010; 82375; 82805; 82947; 82948; 83036; 83050; 83605; 83690; 83735; 84100; 84439; 84443; 84478; 84480; 84484; 85025; 93005; 96361; 96365; 96375; 99291; A9270; J1644; J1815; J2270; J2405; J3480; J7030; J7120; Q9967

== ENCOUNTER 2019-12-04 18:47 | Observation (INO) | payer SELFPAY ==
--- NOTE | ~2019-12-04 | XR_ITS ---
EXAMINATION: XR chest 1V portable DATE: 12/04/2019 21:39 INDICATION: Transient alteration of awareness. TECHNIQUE: frontal view of the chest was obtained. COMPARISON: Chest radiograph dated 11/25/2019 FINDINGS: To pulmonary markings project beyond a skinfold at the right upper lung zone. No focal airspace opaci ties, pulmonary edema, pleural effusion or pneumothorax. The cardiomediastinal silhouette is normal. At least mild bilateral glenohumeral osteoarthritis. IMPRESSION: 1. No acute cardiopulmonary disease. Reviewed, dictated and finalized at location A.
--- NOTE | ~2019-12-04 | CT_ITS ---
EXAMINATION: CT brain wo con INDICATION: Confusion, transient alteration of awareness COMPARISON: None TECHNIQUE: Standard unenhanced head CT. The dose-length product (DLP) was 832.33 mGy-cm. The mA was a djusted according to patient size. Iterative reconstruction technique was employed. FINDINGS: Motion artifact slightly limits the examination. There is no intracranial hemorrhage, acute infarction, or abnormal mass lesion. A small area of low attenuation in the left parietal lobe has t he appearance of chronic infarction. The ventricles are normal. There is no abnormal mass effect or m idline shift. The mota-white matter differentiation is normal. The basal cisterns are patent. The orb its are normal. There is a left mastoid effusion. IMPRESSION: 1. No acute intracranial abnormality. 2. Low attenuation in the left parietal lobe suspicious for chronic infarction. Reviewed, dictated and finalized at location B.
[2019-12-04 18:44] VITALS: BP 115/98; PULSE 115; RESP 20; TEMP 36.6; O2SAT 97
--- NOTE | 2019-12-04 18:50 | ED_ITS ---
I attest that this documentation has been prepared under the direction and in the presence of Mark Dias MD. Naresh Thomas Scribannie 12/04/19;18:50 HPI - Recheck/Abnormal Lab/Rx General Chief Complaint: Recheck/Abnormal Lab/Rx Stated Complaint: hyperglycemia/ AMS Time Seen by Provider: 12/04/19 18:50 Source: patient and RN notes reviewed Mode of arrival: ambulatory Limitations: clinical condition History of Present Illness HPI narrative: Pt is a 44 y/o male presenting to the ED c/o High BS. Doesnt check his BS or check his Insulin admitted here recently with DKA girlfriend called EMS no fever N/V cough congestion acting fine when she left for work earlier then was altered EMS state BS was 309 Related Data Home Medications Medication Instructions Recorded Confirmed gabapentin 400 mg PO TID 11/25/19 11/25/19 insulin glargine [Lantus U-100 12 unit SUBCUT QPM 11/25/19 11/25/19 Insulin] insulin lispro [Humalog U-100 0 - 5 sliding scale dose SUBCUT 11/25/19 11/25/19 Insulin] USEASDIRECTD insulin regular human [Novolin R 10 unit SUBCUT TID 11/25/19 11/25/19 Flexpen] levothyroxine 75 mcg PO DAILY 11/25/19 11/25/19 pantoprazole 40 mg PO QAM 11/25/19 11/25/19 Allergies Allergy/AdvReac Type Severity Reaction Status Date / Time No Known Allergies Allergy Verified 11/25/19 15:57 [facility] Social History Social History Smoking packs per day: 2 Smoking cigarettes per day: 40.0 Smoking status: Current every day smoker Tobacco type: cigarettes Second hand tobacco smoke exposure: Yes Alcohol intake: former Substance use: current Substance use type: marijuana Gender identity (if verbalized by the patient): Male Spiritual care concerns: No Agree to blood products: Yes Discharge Plan Discharge Prescriptions: No Action Novolin R Flexpen 100 unit/mL (3 mL) Insulin Pen 10 unit SUBCUT TID RF: 0 Lantus U-100 Insulin 100 unit/mL Solution 12 unit SUBCUT QPM RF: 0 gabapentin 400 mg Capsule 400 mg PO TID RF: 0 pantoprazole 40 mg Tablet,Delayed Release (Dr/Ec) 40 mg PO QAM RF: 0 insulin lispro [Humalog U-100 Insulin] 100 unit/mL Solution 0 - 5 sliding scale dose SUBCUT USEASDIRECTD RF: 0 levothyroxine 75 mcg Capsule 75 mcg PO DAILY RF: 0
--- NOTE | 2019-12-04 18:52 | ECG_ITS ---
Measurements Intervals Bell Rate: 116 P: 73 FL: 152 QRS: 35 QRSD: 78 T: 82 QT: 341 QTc: 475 Interpretive Statements SINUS TACHYCARDIA RIGHT ATRIAL ENLARGEMENT LEFT ATRIAL ENLARGEMENT CANNOT RULE OUT SEPTAL INFARCT, AGE INDETERMINATE BORDERLINE ST-T WAVE ABNORMALITY- LATERAL LEADS BASELINE ARTIFACT- V4-V6 ABNORMAL ECG Electronically Signed On 12-07-2019 15:25:53 CDT by Ang Collins D.O.
--- NOTE | 2019-12-04 18:58 | ED.AMS ---
HPI - Altered Mental Status General Chief Complaint: Recheck/Abnormal Lab/Rx Stated Complaint: hyperglycemia/ AMS Time Seen by Provider: 12/04/19 18:50 Source: patient, EMS, RN notes reviewed and other (Girlfriend at bedside) Mode of arrival: EMS Limitations: clinical condition History of Present Illness HPI narrative: Pt is a 44 y/o male presenting to the ED c/o High BS. Pt's girlfriend at bedside reports the pt's BS has been high and low recently. Per girlfriend, the pt was acting appropriately before she left for work earlier today but received a call from the pt's mother stating the pt was acting altered during her shift. Per girlfriend, she called EMS due to the pt acting altered upon arrival to their home. Pt's girlfriend states the pt was admitted recently due to DKA and has had problems with High BS multiple times previously. Pt's girlfriend denies the pt experiencing fever, N/V, cough, or congestion. Per girlfriend, the pt has a Hx of Throat Cancer. EMS state the pt's BS was 309mg/dL en route to the ED. Pt reports he has not been checking his BS or taking his insulin recently. HPI is limited due to pt's clinical condition. Most information provided by EMS and pt's girlfriend at bedside. Onset (ago): unknown (Earlier today) Timing confirmed by: other (Pt's girlfriend) Associated symptoms: denies other symptoms Related Data Home Medications Medication Instructions Recorded Confirmed gabapentin 400 mg PO TID 11/25/19 11/25/19 insulin glargine [Lantus U-100 12 unit SUBCUT QPM 11/25/19 11/25/19 Insulin] insulin lispro [Humalog U-100 0 - 5 sliding scale dose SUBCUT 11/25/19 11/25/19 Insulin] USEASDIRECTD insulin regular human [Novolin R 10 unit SUBCUT TID 11/25/19 11/25/19 Flexpen] levothyroxine 75 mcg PO DAILY 11/25/19 11/25/19 pantoprazole 40 mg PO QAM 11/25/19 11/25/19 Allergies Allergy/AdvReac Type Severity Reaction Status Date / Time No Known Allergies Allergy Verified 12/04/19 19:10 Review of Systems Review of Systems: Narrative: ROS is limited due to pt's clinical condition. All Sx's provided by pt's girlfriend at bedside. All systems reviewed & are unremarkable except as noted in HPI and below Constitutional: Constitutional: Denies fever(s) ENT: Denies nasal congestion Respiratory: Respiratory: Denies cough Gastrointestinal: Gastrointestinal: Denies nausea and Denies vomiting Neurologic: Reports behavioral changes (acting altered) [facility] Past Medical History Medical History Diabetes Surgical History Surgical History History of intestinal surgery Social History Social History Smoking packs per day: 2 Smoking cigarettes per day: 40.0 Smoking status: Current every day smoker Tobacco type: cigarettes Second hand tobacco smoke exposure: Yes Alcohol intake: former Substance use: current Substance use type: marijuana Gender identity (if verbalized by the patient): Male Spiritual care concerns: No Agree to blood products: Yes Exam Narrative: Exam Narrative: discheveled chronically ill appearing mild dist DMM generalized abd tend not answering orientation questions tachy Const: General: in distress mild, ill appearing chronically and other (Disheveled) Limitations: behavioral limitations (Not cooperating) HENMT: Mouth: Yes lip normal and Yes dry mucous membranes Resp: Effort & Inspection: normal respiratory effort Auscultation: clear to auscultation bilaterally Cardio: Rate: tachycardic Rhythm: regular rhythm GI: GI Palp: Yes Soft to palpation and Yes Tenderness to palpation present (GI) (Generalized) Course Consultations Consultation #1: Discussed case with Hospitalist Dr. Welch. Accepted the pt for admission. Date: 12/04/19 Time: 21:10 Consultation #2: Discussed case with Software Performance Engineer Dr. Camp. Asked to get Acetomino
[2019-12-04 19:01] LABS: Glucose Point of Care 324 (65-105)
--- NOTE | 2019-12-04 19:09 | PC.NURSE ---
IV attempted x3 with no success
--- NOTE | 2019-12-04 19:27 | PC.NURSE ---
Assumed care of patient from ALEJANDRO Ding. Patient straight cathed by RN x2 and EDT x3. Patient is uncooperative, combative, cussing and swinging at staff. Tourniquet placed to look for IV access and patient began stating, get me the fuck out of here and fuck off . Tourniquet removed and pt informed that this behavior will not be tolerated, and assault on any staff member will lead to the police being called. MD at bedside to attempt ultrasound IV.
[2019-12-04 19:53] LABS: Basophils Absolute Auto 0.1 K/mm3 (0.0-0.1); Basophils Percent Auto 0.5 % (0.2-1.2); Eosinophils Percent Auto 0.1 % (0-4.4); Hematocrit 42.4 % (42.0-52.0); Hemoglobin 14.6 g/dL (14.0-18.0); Immature Granulocyte Absolute 0.08 K/mm3 (0.00-0.031); Immature Granulocyte Percent A 0.5 % (0-0.5); Lymphocytes Absolute Auto 3.66 K/mm3 (0.9-3.2); Lymphocytes Percent Auto 21.2 % (18.3-44.2); Mean Corpuscular HGB Conc 34.4 g/dl (32-36); Mean Corpuscular Hemoglobin 30.5 pg (26-34); Mean Corpuscular Volume 88.7 fl (80-100); Mean Platelet Volume 10.7 fl (7.4-10.4); Monocytes Absolute Auto 1.6 K/mm3 (0.1-0.6); Monocytes Percent Auto 9.3 % (2.6-8.5); Neutrophils Absolute Auto 11.8 K/mm3 (1.3-6.7); Neutrophils Percent Auto 68.4 % (45.5-73.1); Platelet Count Result 577 k/mm3 (150-375); Red Blood Count 4.78 M/mm3 (4.6-6.20); Red Cell Distribution Width 16.4 % (11.5-14.5); White Blood Count 17.3 K/mm3 (4.5-10.0)
[2019-12-04] MEDS: SODIUM CHLORIDE 0.9% IV 1,000 ML 999 ML IV CONT ×2 (19:54→19:55)
[2019-12-04 20:01] LABS: Add Urine Microscopic? YES; Appearance Urine Clear (Clear); Bacteria Urine Trace /hpf; Bilirubin Urine Negative (Negative); Blood Urine Negative (Negative); Color Urine Yellow (Yellow); Glucose Urine UA 3+ mg/dL (Negative); Ketones Urine 2+ mg/dL (Negative); Leukocyte Esterase Ur Negative LEU/UL (Negative); Nitrate Urine Negative (Negative); Protein Urine 1+ mg/dL (Negative); Specific Grav Ur 1.024 (1.001-1.035); Urobilinogen Urine Negative mg/dL (<2.0); WBC Urine 0-3 /hpf
[2019-12-04 20:10] LABS: Lactic Acid Reflex 4.2 mmol/L (0.7-2.1)
[2019-12-04 20:12] LABS: Alanine Aminotransferase 133 U/L (4-50); Albumin Level 5.4 g/dL (3.5-5.1); Alkaline Phosphatase 901 U/L (38-126); Aspartate Amino Transferase 60 U/L (17-59); Bilirubin,Total 1.3 mg/dL (0.2-1.3); Blood Urea Nitrogen 40 mg/dL (9-20); Calcium 10.7 mg/dL (8.4-10.2); Carbon Dioxide 22 mmol/L (22-30); Chloride 93 mmol/L (98-107); Estimated Glomerular Filt Rate 28; Glucose 256 mg/dL (75-110); Magnesium 2.4 mg/dL (1.6-2.3); Phosphorus 2.3 mg/dL (2.5-4.5); Potassium 4.2 mmol/L (3.4-5.0); Sodium 137 mmol/L (137-145)
[2019-12-04 20:14] LABS: Beta-Hydroxybutyrate/Acetoacetate 2.41 mmol/L (0.02-0.27)
[2019-12-04 20:30] LABS: Base Excess ABG -2.4 mEq/l (+/-2.0); Fractional Inspired Oxygen 21 %; HCO3 ABG 21.8 mEq/l (22.0-26.0); Oxygen Saturation ABG 96.8 % (95.0-100.0); Oxyhemoglobin 95.1 % THb (90.0-100.0); PCO2 ABG 35.7 mmHg (35.0-45.0); PO2 FiO2 Ratio Arterial Blood 4.19 %; Total Hemoglobin 13.4 g/dL (12.0-18.0); pH ABG 7.403 (7.350-7.450)
[2019-12-04 20:31] LABS: Device ROOM AIR; Modified Allen's Test Pass; Site Drawn RIGHT BRACHIAL
--- NOTE | 2019-12-04 20:34 | PC.NURSE ---
Patient sleeping in stretcher in [facility]. New labs obtained, IV fluids infusing, call light within reach, visitor at bedside.
[2019-12-04 20:49] LABS: Ammonia < 9 umol/L (9-30); Ethanol < 10 mg/dL (<10)
[2019-12-04 21:00] VITALS: BP 116/96; PULSE 96; RESP 16
[2019-12-04 21:22] LABS: Glucose Point of Care 149 (65-105)
--- NOTE | 2019-12-04 21:22 | PC.NURSE ---
Glucose 149. Insulin bolus held at this time per Dr. Dias. Patient remains resting in stretcher [facility] visitor at bedside, call light within reach.
[2019-12-04 21:35] LABS: Amphetamine Screen Urine Negative (Negative); Barbiturate Screen Urine Negative (Negative); Benzodiazepines Screen Urine Negative (Negative); Cannabinoid Screen Urine Negative (Negative); Cocaine Screen Urine Negative (Negative); Methadone Screen Urine Negative (Negative); Opiate Screen Urine Negative (Negative); Phencyclidine Screen Urine Negative (Negative)
[2019-12-04 21:40] LABS: Acetaminophen < 10 ug/mL (10-30); Salicylate < 1.0 mg/dL (2-20)
[2019-12-04 21:56] VITALS: BP 151/96; PULSE 96; RESP 24; O2SAT 96
--- NOTE | 2019-12-04 22:30 | PC.NURSE ---
Patient refusing to keep arm straight or cooperate with care. Arm board placed on patient, IV fluids infusing. Patient continues to cuss at staff and not cooperate with any care.
[2019-12-04 22:51] LABS: Reflex Lactic Acid Yes or No Add Lactic
[2019-12-04] MEDS: INSULIN HUMAN REGULAR (*BKC) 100 UNITS in SODIUM CHLORIDE 0.9% IV 99 ML IV CONT (23:01)
[2019-12-04 23:08] LABS: Glucose Point of Care 131 (65-105)
[2019-12-04] MEDS: KCL 20 MEQ/D5/0.45% SOD CHL 1,000 ML 150 ML IV CONT (23:21)
[2019-12-04 23:25] VITALS: BMI 20.5
[2019-12-04 23:27] LABS: Glucose Point of Care 132 (65-105)
[2019-12-04 23:33] VITALS: BP 143/94; PULSE 83; RESP 14; O2SAT 96
--- NOTE | 2019-12-04 23:41 | ADMGEN ---
This patient, Keegan Bland, was admitted to Intensive Care Unit-7 at 12/04/2019 2325. Patient/family oriented to hospital policies and general routines including ID bracelet, bed and alarms, visiting hours, pain management, procedures, bathroom and other care routines, personal items, smoking policy, room service/diet, and visiting hours. Valuables list has been completed. Information on how to activate the Rapid Response Team has been discussed. Patient/Family are encouraged to report perceived risks to care and to ask questions if they do not understand what they are told or what they should do.
--- NOTE | 2019-12-04 23:46 | PM.IMHP ---
H&P: HPI History of Present Illness Chief complaint: Acting like his glucoses are high Narrative: Date and time of patient contact: 12/04/2019 at 11:25 p.m. Source of information: Patient who is extremely poor historian and ER records as well as prior history and physical from recent hospitalization. Keegan Bland is a 44 year old male with a past medical history of insulin-dependent diabetes mellitus and noncompliance with medical therapy who presented to the ER via EMS from home for possible high glucoses. When EMS arrived at the patient's residence who glucose was 309. Patient's girlfriend reported to the ER staff that the patient was sleeping and that this is how he acts when his blood sugars are high. In the ER the patient would respond to sternal rub in with swing and arms in yelling ?why the fuck are you doing that.? At the time of my evaluation the patient would state I do not know to multiple questions. But he did answer more questions for me. He states that he has been vomiting for a few days. The patient reports abdominal pain. He points to his epigastrium when I asked where the pain is located. However on examination the patient seems generally tender in his abdomen. He was also crying out in pain hot when nurses were does looking at his arms for possible site of IVs. The patient is actively shivering at the time of my evaluation and reports that he has been feeling cold. He never did answer if he had been having symptoms of fever. He was irritable at the time of my evaluation but was not uncooperative. In the ER the patient was noted to have significant lactic acidosis but on review of prior labs the patient has had a lactic acidosis with every admission that never quite resolved. The CT of the patient's abdomen on November 24 had demonstrated moderate bladder distention mild bilateral ureterectasis gas in the colon without obstruction and possible ileus. Incidentally, there was also some focal fatty infiltration of the liver near the falciform ligament and bilateral renal cortical scarring. Of note the patient had admitted on November 24 left the hospital AMA on the . Review of Systems Review of Systems: Narrative: Review of systems limited due to a combination of lack of patient cooperation and likely underlying metabolic encephalopathy. [facility] Past Medical History Medical History (Updated 12/05/19 @ 00:01 by Nancy Welch DO) Diabetes Diabetic neuropathy GERD (gastroesophageal reflux disease) Hypothyroidism Surgical History Surgical History (Updated 12/04/19 @ 23:48 by Nancy Welch DO) History of intestinal surgery With CT evidence of ileal cecal anastomosis Family History Family History (Updated 12/05/19 @ 00:02 by Nancy Welch DO) Other Unknown family medical history Social History Social History Smoking packs per day: 2 Smoking cigarettes per day: 40.0 Smoking status: Current every day smoker Tobacco type: cigarettes Second hand tobacco smoke exposure: Yes Alcohol intake: former Substance use: current Substance use type: marijuana Gender identity (if verbalized by the patient): Male Spiritual care concerns: No Agree to blood products: Yes Meds Home Medications and Allergies Home Medications Medication Instructions Recorded Confirmed Type gabapentin 400 mg PO TID 11/25/19 12/04/19 History insulin glargine [Lantus U-100 12 unit SUBCUT QPM 11/25/19 12/04/19 History Insulin] insulin lispro [Humalog U-100 0 - 5 sliding scale dose SUBCUT 11/25/19 12/04/19 History Insulin] USEASDIRECTD insulin regular human [Novolin R 10 unit SUBCUT TID 11/25/19 12/04/19 History Flexpen] pantoprazole 40 mg PO QAM 11/25/19 12/04/19 History levothyroxine 88 mcg PO DAILY 12/05/19 12/05/19 History Allergies Allergy/AdvReac Type Severity Reaction Status Date / Time No Known Allergies Allergy
[2019-12-04] MEDS: SODIUM CHLORIDE 0.9% IV 1,000 ML 500 ML IV CONT (23:48)
[2019-12-04 23:56] VITALS: PULSE 102; RESP 18; O2SAT 99
[2019-12-05] VITALS (10 sets, daily range): BP systolic 104–131; BP diastolic 64–89; PULSE 67–101; RESP 14–18; TEMP 35.8–36.9; O2SAT 97–100; BMI 20.5
[2019-12-05 00:19] LABS: Glucose Point of Care 149 (65-105)
[2019-12-05 00:31] LABS: Lactic Acid 2.3 mmol/L (0.7-2.1)
[2019-12-05 00:51] LABS: Creatine Kinase 23 U/L (55-170)
[2019-12-05 00:59] LABS: Blood Urea Nitrogen 38 mg/dL (9-20); Calcium 9.1 mg/dL (8.4-10.2); Carbon Dioxide 21 mmol/L (22-30); Chloride 103 mmol/L (98-107); Estimated CRCL calculation 40 ml/min; Estimated Glomerular Filt Rate 42; Glucose 128 mg/dL (75-110); Hepatitis B Surface Antigen Negative (Negative); Magnesium 2.2 mg/dL (1.6-2.3); Phosphorus 2.4 mg/dL (2.5-4.5); Potassium 4.1 mmol/L (3.4-5.0); Sodium 139 mmol/L (137-145)
[2019-12-05 01:03] LABS: Glucose Point of Care 73 (65-105)
[2019-12-05 01:05] LABS: HAV RESULT Negative (Negative); Hepatitis B Core IgM Result Negative (Negative)
[2019-12-05 01:16] LABS: Hepatitis C Virus Antibody Negative (Negative)
[2019-12-05 01:50] LABS: Folic Acid 14.8 ng/mL (2.76->20)
[2019-12-05 02:03] LABS: Glucose Point of Care 230 (65-105)
[2019-12-05 02:59] LABS: Glucose Point of Care 134 (65-105)
[2019-12-05 04:00] LABS: Glucose Point of Care 48 (65-105)
[2019-12-05 04:00] LABS: Glucose Point of Care 134 (65-105)
[2019-12-05 04:24] LABS: Basophils Absolute Auto 0.1 K/mm3 (0.0-0.1); Basophils Percent Auto 0.6 % (0.2-1.2); Eosinophils Percent Auto 0.2 % (0-4.4); Hematocrit 35.9 % (42.0-52.0); Hemoglobin 12.3 g/dL (14.0-18.0); Immature Granulocyte Absolute 0.03 K/mm3 (0.00-0.031); Immature Granulocyte Percent A 0.2 % (0-0.5); Lymphocytes Absolute Auto 3.33 K/mm3 (0.9-3.2); Lymphocytes Percent Auto 26.6 % (18.3-44.2); Mean Corpuscular HGB Conc 34.3 g/dl (32-36); Mean Corpuscular Hemoglobin 30.8 pg (26-34); Mean Platelet Volume 10.7 fl (7.4-10.4); Monocytes Absolute Auto 1.3 K/mm3 (0.1-0.6); Monocytes Percent Auto 10.6 % (2.6-8.5); Neutrophils Absolute Auto 7.7 K/mm3 (1.3-6.7); Neutrophils Percent Auto 61.8 % (45.5-73.1); Platelet Count Result 420 k/mm3 (150-375); Red Blood Count 3.99 M/mm3 (4.6-6.20); Red Cell Distribution Width 16.5 % (11.5-14.5); White Blood Count 12.5 K/mm3 (4.5-10.0)
[2019-12-05 04:45] LABS: Blood Urea Nitrogen 33 mg/dL (9-20); Calcium 8.8 mg/dL (8.4-10.2); Carbon Dioxide 24 mmol/L (22-30); Chloride 107 mmol/L (98-107); Estimated CRCL calculation 47 ml/min; Estimated Glomerular Filt Rate 51; Glucose 39 mg/dL (75-110); Potassium 3.6 mmol/L (3.4-5.0); Sodium 137 mmol/L (137-145)
[2019-12-05] MEDS: DEXTROSE 50% 25 GM/50 ML SYRINGE IV PUSH (04:49)
[2019-12-05 05:22] LABS: Glucose Point of Care 212 (65-105)
[2019-12-05] MEDS: KCL 20 MEQ/D5/0.45% SOD CHL 1,000 ML 100 ML IV CONT (05:31)
[2019-12-05] MEDS: SODIUM CHLORIDE 0.9% IV 1,000 ML 100 ML IV CONT ×2 (05:49→21:48)
[2019-12-05] MEDS: LEVOTHYROXINE SODIUM 88 MCG TABLET PO (06:04)
[2019-12-05 06:08] LABS: Glucose Point of Care 165 (65-105)
--- NOTE | 2019-12-05 07:44 | PM.IMPN ---
Progress Note: A&P Assessment and Plan (1) DKA (diabetic ketoacidoses): Qualifiers: Diabetes mellitus complication detail: without coma Diabetes mellitus type: type 1 Qualified Code(s): E10.10 - Type 1 diabetes mellitus with ketoacidosis without coma Code(s): E11.10 - Type 2 diabetes mellitus with ketoacidosis without coma Status: Acute Assessment and Plan: Clearly a recurrent issue with noncompliance adding to the problem. Hemoglobin A1c 13.1 on last admission. DKA protocol started on admission. No IV insulin but has been noted to have some hypoglycemia. Will hold off on starting scheduled mealtime insulin based on his last admission but will give small amount of once daily Lantus. Continue to monitor. Continue sliding scale insulin. Will have nurse informatics educator see patient as this was unable to be done on last visit. He did see the dietitian on last visit. Discussed with dehairing machine tender. Anticipate transfer from ICU to medical floor today. (2) Diabetes: Qualifiers: Diabetes mellitus complication status: with hyperglycemia Diabetes mellitus termination clerk insulin use: with termination clerk use Diabetes mellitus type: type 2 Qualified Code(s): E11.65 - Type 2 diabetes mellitus with hyperglycemia; Z79.4 - termite exterminator (current) use of insulin Code(s): E11.9 - Type 2 diabetes mellitus without complications Status: Acute Assessment and Plan: Poor control with poor compliance as noted above. Had discussion with patient regarding need to be active in treating his own illness. Continue to monitor. Will hopefully be able to come up with a regimen that he can follow once able to be discharged. (3) Acute metabolic encephalopathy: Code(s): G93.41 - Metabolic encephalopathy Status: Resolved Assessment and Plan: Appears to be back to his baseline based on experience from his last visit. Will monitor. CT brain was done in ER. (4) Acute kidney injury: Code(s): N17.9 - Acute kidney failure, unspecified Status: Acute Assessment and Plan: Likely due to dehydration. Creatinine down to 1.50. Will continue IV fluids. Elevated with AST 60 and ALT 133. Will follow those while here. Hepatitis screen is negative. (5) Acidosis, lactic: Code(s): E87.2 - Acidosis Status: Acute Assessment and Plan: Lactic acid down to 2.3 which is slightly better than at time of AMA last visit. Blood cultures have been ordered for completeness. No sign of infection at this time. (6) Noncompliance: Code(s): Z91.19 - Patient's noncompliance with other medical treatment and regimen Status: Acute Assessment and Plan: nurse educator consulted as noted above. (7) Hypothyroidism: Qualifiers: Hypothyroidism type: unspecified Qualified Code(s): E03.9 - Hypothyroidism, unspecified Code(s): E03.9 - Hypothyroidism, unspecified Status: Acute Assessment and Plan: TSH was elevated on last visit with recommendation to increase levothyroxine from 75 mcg to 88 mcg. With patient leaving [facility] no prescription was given but will give higher dose while here. (8) DVT prophylaxis: Code(s): Z29.9 - Encounter for prophylactic measures, unspecified Status: Acute Assessment and Plan: Lonveox. Time Spent With Patient Time with patient: 15 - 25 minutes Subjective Date/time seen: 12/05/19 07:44 Interval history: Date of Service: 12/05/2019. Admitted with DKA. Recently hospitalized for same with patient leaving [facility] on 11/28/2019. Patient states he is feeling fine this morning. He tells me he had reasons why he had to leave [facility] from the last hospitalization. Denies chest pain. No shortness of breath. No abdominal pain. No headache or dizziness. Review of Systems Constitutional: Constitutional: Denies chills and Denies fever(s) ENT: Denies dysphagia Cardiovascular: Cardiovascular: Denies chest pa
[2019-12-05 08:22] LABS: Glucose Point of Care 145 (65-105)
[2019-12-05 08:34] LABS: Blood Urea Nitrogen 31 mg/dL (9-20); Calcium 8.6 mg/dL (8.4-10.2); Carbon Dioxide 23 mmol/L (22-30); Chloride 103 mmol/L (98-107); Estimated CRCL calculation 51 ml/min; Estimated Glomerular Filt Rate 56; Glucose 163 mg/dL (75-110); Potassium 4.9 mmol/L (3.4-5.0); Sodium 139 mmol/L (137-145)
[2019-12-05] MEDS: GABAPENTIN 400 MG CAPSULE PO ×3 (09:08→16:43)
[2019-12-05] MEDS: INSULIN GLARGINE (*BKC) 100 UNITS/ML SUB-Q (09:08)
[2019-12-05] MEDS: PANTOPRAZOLE SODIUM IV 40 MG VIAL IV PUSH (09:08)
[2019-12-05] MEDS: ENOXAPARIN 40 MG/0.4 ML SYRINGE SUB-Q (09:36)
[2019-12-05 11:23] LABS: Glucose Point of Care 277 (65-105)
--- NOTE | 2019-12-05 11:56 | WPDINTPN ---
Progress Note: A&P Assessment and Plan (1) DKA (diabetic ketoacidoses): Qualifiers: Diabetes mellitus type: type 1 Diabetes mellitus complication detail: without coma Qualified Code(s): E10.10 - Type 1 diabetes mellitus with ketoacidosis without coma Code(s): E11.10 - Type 2 diabetes mellitus with ketoacidosis without coma Status: Acute Assessment and Plan: - resolved - off insulin drip - started on SSI and lantus low dose due to episode of hypoglycemia this am - may benefit from checking 2 am accu check as noted to have lucerne farmer hypoglycemia - Patient very noncompliant at baseline (2) Diabetes: Qualifiers: Diabetes mellitus type: type 2 Diabetes mellitus long term care phlebotomist insulin use: with assisted use Diabetes mellitus complication status: with hyperglycemia Qualified Code(s): E11.65 - Type 2 diabetes mellitus with hyperglycemia; Z79.4 - MCFP (current) use of insulin Code(s): E11.9 - Type 2 diabetes mellitus without complications Status: Acute Assessment and Plan: Poor control with poor compliance . last Hba1c was 13.9. on SSI and lantus (3) Acute metabolic encephalopathy: Code(s): G93.41 - Metabolic encephalopathy Status: Resolved Assessment and Plan: Appears to be back to his baseline based on experience from his last visit. Will monitor. CT brain was negative . Likely metabolic encephalopathy which has resolved. (4) Acute kidney injury: Code(s): N17.9 - Acute kidney failure, unspecified Status: Acute Assessment and Plan: Likely due to dehydration. Creatinine down to 1.40. Will continue IV fluids. Elevated with AST 60 and ALT 133. Will follow those while here. Hepatitis screen is negative. (5) Acidosis, lactic: Code(s): E87.2 - Acidosis Status: Acute Assessment and Plan: Lactic acid down to 2.3 which is slightly better than at time of AMA last visit. Blood cultures have been ordered for completeness but have been negative so far. No sign of infection at this time. (6) Noncompliance: Code(s): Z91.19 - Patient's noncompliance with other medical treatment and regimen Status: Acute Assessment and Plan: music educator consulted as noted above. (7) Hypothyroidism: Qualifiers: Hypothyroidism type: unspecified Qualified Code(s): E03.9 - Hypothyroidism, unspecified Code(s): E03.9 - Hypothyroidism, unspecified Status: Acute Assessment and Plan: TSH was elevated on last visit with recommendation to increase levothyroxine from 75 mcg to 88 mcg. With patient leaving [facility] no prescription was given but will give higher dose while here. (8) DVT prophylaxis: Code(s): Z29.9 - Encounter for prophylactic measures, unspecified Status: Acute Assessment and Plan: Lonveox. Additional Plan Total time spent - 35 min Subjective Date/time seen: 12/05/19 11:56 Interval history: Date of Service: 12/05/2019. Admitted with DKA. Recently hospitalized for same with patient leaving [facility] on 11/28/2019. Patient states he is feeling fine this morning. He tells me he had reasons why he had to leave [facility] from the last hospitalization. Denies chest pain. No shortness of breath. No abdominal pain. No headache or dizziness. 12/05- off insulin drip . had one episode of hypoglycemia last night . Lantus dose decreased and changed to QD from BID. VSS. Review of Systems Review of Systems: Narrative: limited due to lack of patient cooperation . Exam Narrative: Exam Narrative: Awake and alert. Does have covers pulled up over his head but allows me to uncover him. Const: General: awake Nutritional Appearance: cachectic HENMT: Head: normal to inspection Ears: hearing grossly normal bilaterally General nose exam: Normal external nose present Face and sinus: normal facial exam Mouth: Yes Normal oral and palatal mucosa present Obje
[2019-12-05] MEDS: INSULIN ASPART (*BKC) 100 UNITS/ML SUB-Q ×3 (12:06→21:47)
[2019-12-05 12:34] LABS: Blood Urea Nitrogen 26 mg/dL (9-20); Calcium 7.9 mg/dL (8.4-10.2); Carbon Dioxide 18 mmol/L (22-30); Chloride 97 mmol/L (98-107); Estimated CRCL calculation 58 ml/min; Estimated Glomerular Filt Rate > 60; Glucose 286 mg/dL (75-110); Potassium 4.8 mmol/L (3.4-5.0); Sodium 130 mmol/L (137-145)
--- NOTE | 2019-12-05 12:51 | PC.NURSE ---
Patient transferred to room 343 via wheelchair, report given to Radha ALLEN, belongings sent with patient.
--- NOTE | 2019-12-05 13:08 | PC.NURSE ---
This patient, Keegan Bland, was received from ICU on 12/05/19 at 1309. Personal belongings list checked and signed. Patient/family oriented to unit policies and routines
[2019-12-05 14:34] LABS: Glucose Point of Care 298 (65-105)
[2019-12-05 16:46] LABS: Glucose Point of Care 269 (65-105)
[2019-12-05 16:56] LABS: Blood Urea Nitrogen 22 mg/dL (9-20); Calcium 7.7 mg/dL (8.4-10.2); Carbon Dioxide 18 mmol/L (22-30); Chloride 94 mmol/L (98-107); Estimated CRCL calculation 64 ml/min; Estimated Glomerular Filt Rate > 60; Glucose 255 mg/dL (75-110); Potassium 4.8 mmol/L (3.4-5.0); Sodium 126 mmol/L (137-145)
[2019-12-05 21:20] LABS: Glucose Point of Care 307 (65-105)
[2019-12-06 02:16] LABS: Blood Urea Nitrogen 16 mg/dL (9-20); Calcium 7.6 mg/dL (8.4-10.2); Carbon Dioxide 25 mmol/L (22-30); Chloride 96 mmol/L (98-107); Estimated CRCL calculation 70 ml/min; Estimated Glomerular Filt Rate > 60; Glucose 175 mg/dL (75-110); Magnesium 1.6 mg/dL (1.6-2.3); Potassium 3.6 mmol/L (3.4-5.0); Sodium 126 mmol/L (137-145)
[2019-12-06 04:52] VITALS: BP 110/71; PULSE 79; RESP 15; TEMP 36.4; O2SAT 100
[2019-12-06] MEDS: LEVOTHYROXINE SODIUM 88 MCG TABLET PO (05:31)
[2019-12-06 07:03] LABS: Glucose Point of Care 316 (65-105)
[2019-12-06] MEDS: SODIUM CHLORIDE 0.9% IV 1,000 ML 100 ML IV CONT (07:27)
[2019-12-06] MEDS: INSULIN ASPART (*BKC) 100 UNITS/ML SUB-Q ×2 (07:30→17:30)
[2019-12-06] MEDS: INSULIN GLARGINE (*BKC) 100 UNITS/ML 10 UNITS SUB-Q (07:34)
[2019-12-06] MEDS: ENOXAPARIN 40 MG/0.4 ML SYRINGE SUB-Q (08:09)
[2019-12-06] MEDS: GABAPENTIN 400 MG CAPSULE PO ×3 (08:10→17:30)
[2019-12-06] MEDS: PANTOPRAZOLE SODIUM IV 40 MG VIAL IV PUSH (08:10)
[2019-12-06 08:32] VITALS: PULSE 80; RESP 16; O2SAT 100
--- NOTE | 2019-12-06 10:46 | PM.IMPN ---
Progress Note: A&P Assessment and Plan (1) DKA (diabetic ketoacidoses): Qualifiers: Diabetes mellitus complication detail: without coma Diabetes mellitus type: type 1 Qualified Code(s): E10.10 - Type 1 diabetes mellitus with ketoacidosis without coma Code(s): E11.10 - Type 2 diabetes mellitus with ketoacidosis without coma Status: Acute Assessment and Plan: Clearly a recurrent issue with noncompliance adding to the problem. Hemoglobin A1c 13.1 on last admission. DKA protocol started on admission and completed with patient transitioned to Lantus yesterday morning. Was able to see conservation educator yesterday. Saw dietitian on his last visit. Reinforce with patient need to follow diabetic diet as well as be compliant with his medication home. Stop IV fluids. Will continue to monitor glucose and adjust treatment as needed. Hopefully, patient will remain in hospital until ready for discharge. (2) Diabetes: Qualifiers: Diabetes mellitus complication status: with hyperglycemia Diabetes mellitus care home insulin use: with care home use Diabetes mellitus type: type 2 Qualified Code(s): E11.65 - Type 2 diabetes mellitus with hyperglycemia; Z79.4 - terminal gauger supervisor (current) use of insulin Code(s): E11.9 - Type 2 diabetes mellitus without complications Status: Acute Assessment and Plan: Poor control with poor compliance as noted above. Patient tells me he was taking long-acting insulin 10 units twice a day with short-acting insulin 10 units with every meal at home. Was having variable blood sugars at home. Glucose this morning in the 300s. Lantus increased to 10 units q.a.m. but will adjust more if needed. Continue sliding scale insulin. Will hold off on scheduled mealtime insulin as patient noted to have hypoglycemia with scheduled long-acting insulin twice daily and mealtime insulin on last visit. Will continue to adjust insulin based on glucose readings. Continue diabetic diet. Reminded patient he will need to follow diabetic diet at home in addition to taking medication as prescribed. (3) Acute metabolic encephalopathy: Code(s): G93.41 - Metabolic encephalopathy Status: Resolved Assessment and Plan: Mental status definitely back to his baseline this morning. CT brain in ER with no acute changes. Result of DKA. Will monitor mental status while here. (4) Acute kidney injury: Code(s): N17.9 - Acute kidney failure, unspecified Status: Resolved Assessment and Plan: Likely due to dehydration. Now resolved with creatinine 1.00 this morning. Will discontinue IV fluids. Will continue to monitor. (5) Acidosis, lactic: Code(s): E87.2 - Acidosis Status: Acute Assessment and Plan: Lactic acid down to 2.3 on last check. Blood cultures ordered for completeness and negative to date. No sign of infection. Will repeat level with a.m. labs. (6) Noncompliance: Code(s): Z91.19 - Patient's noncompliance with other medical treatment and regimen Status: Acute Assessment and Plan: Had long discussion with patient again today regarding need to be compliant with not only medication but diet. (7) Elevated LFTs: Code(s): R94.5 - Abnormal results of liver function studies Status: Acute Assessment and Plan: Elevated on admission with AST 60 and ALT 133. Probably also result of dehydration. Hepatitis screen is negative. No abdominal pain. Will repeat with a.m. labs. (8) Hypothyroidism: Qualifiers: Hypothyroidism type: unspecified Qualified Code(s): E03.9 - Hypothyroidism, unspecified Code(s): E03.9 - Hypothyroidism, unspecified Status: Acute Assessment and Plan: TSH was elevated on last visit with recommendation to increase levothyroxine from 75 mcg to 88 mcg. With patient leaving [facility] at last visit, no prescription was given but will give higher dose while here
[2019-12-06 11:50] LABS: Glucose Point of Care 420 (65-105)
[2019-12-06] MEDS: MUPIROCIN 2% OINT 22 GM TUBE 1 APPLIC EACH NARE ×2 (11:50→20:21)
[2019-12-06] MEDS: INSULIN ASPART (*BKC) 100 UNITS/ML 10 UNITS SUB-Q (12:31)
[2019-12-06 14:00] VITALS: BP 96/59; PULSE 77; RESP 16; TEMP 36.6; O2SAT 99
[2019-12-06 17:30] LABS: Glucose Point of Care 221 (65-105)
[2019-12-06] MEDS: INSULIN HUMAN ISOPHAN/REGULAR 70/30 (*BKC) 100 UNITS/ML 10 UNITS SUB-Q (17:31)
[2019-12-06 20:12] VITALS: BP 117/81; PULSE 84; RESP 14; TEMP 36.2; O2SAT 100
[2019-12-06] MEDS: GLUCOSE ORAL GEL 15 GM OF GLUCSE IN 37.5 GM TUBE PO (20:24)
[2019-12-06 20:42] LABS: Glucose Point of Care 61 (65-105)
[2019-12-06 20:42] LABS: Glucose Point of Care 89 (65-105)
[2019-12-06 22:12] LABS: Glucose Point of Care 121 (65-105)
[2019-12-07 01:59] LABS: Glucose Point of Care 43 (65-105)
[2019-12-07] MEDS: GLUCOSE ORAL GEL 15 GM OF GLUCSE IN 37.5 GM TUBE PO ×2 (01:59→02:18)
[2019-12-07 02:41] LABS: Glucose Point of Care 69 (65-105)
[2019-12-07 02:41] LABS: Glucose Point of Care 100 (65-105)
[2019-12-07 05:22] VITALS: BP 109/71; PULSE 70; RESP 16; TEMP 36.4; O2SAT 100
[2019-12-07] MEDS: LEVOTHYROXINE SODIUM 88 MCG TABLET PO (05:30)
[2019-12-07 05:44] LABS: Glucose Point of Care 216 (65-105)
[2019-12-07] MEDS: INSULIN HUMAN ISOPHAN/REGULAR 70/30 (*BKC) 100 UNITS/ML 10 UNITS SUB-Q (06:20)
[2019-12-07 07:01] LABS: Lactic Acid 3.2 mmol/L (0.7-2.1)
[2019-12-07 07:14] LABS: Alanine Aminotransferase 56 U/L (4-50); Albumin Level 3.5 g/dL (3.5-5.1); Alkaline Phosphatase 342 U/L (38-126); Aspartate Amino Transferase 115 U/L (17-59); Bilirubin,Total 1.4 mg/dL (0.2-1.3); Blood Urea Nitrogen 12 mg/dL (9-20); Calcium 7.9 mg/dL (8.4-10.2); Carbon Dioxide 21 mmol/L (22-30); Chloride 96 mmol/L (98-107); Estimated CRCL calculation 28 ml/min; Estimated Glomerular Filt Rate > 60; Glucose 347 mg/dL (75-110); Potassium 5.4 mmol/L (3.4-5.0); Sodium 127 mmol/L (137-145)
[2019-12-07 07:40] LABS: Glucose Point of Care 330 (65-105)
[2019-12-07] MEDS: GABAPENTIN 400 MG CAPSULE PO ×3 (08:14→16:55)
[2019-12-07] MEDS: MUPIROCIN 2% OINT 22 GM TUBE 1 APPLIC EACH NARE ×2 (08:14→20:18)
[2019-12-07] MEDS: PANTOPRAZOLE 40 MG TABLET PO (08:14)
[2019-12-07] MEDS: ENOXAPARIN 40 MG/0.4 ML SYRINGE SUB-Q (08:15)
[2019-12-07] MEDS: INSULIN ASPART (*BKC) 100 UNITS/ML SUB-Q (08:19)
[2019-12-07 08:24] LABS: Hematocrit 31.7 % (42.0-52.0); Hemoglobin 10.9 g/dL (14.0-18.0); Mean Corpuscular HGB Conc 34.4 g/dl (32-36); Mean Corpuscular Hemoglobin 30.9 pg (26-34); Mean Corpuscular Volume 89.8 fl (80-100); Mean Platelet Volume 10.7 fl (7.4-10.4); Platelet Count Result 255 k/mm3 (150-375); Red Blood Count 3.53 M/mm3 (4.6-6.20); Red Cell Distribution Width 15.5 % (11.5-14.5); White Blood Count 8.2 K/mm3 (4.5-10.0)
[2019-12-07 11:54] LABS: Glucose Point of Care 162 (65-105)
--- NOTE | 2019-12-07 12:59 | PM.IMPN ---
Progress Note: A&P Assessment and Plan (1) DKA (diabetic ketoacidoses): Qualifiers: Diabetes mellitus complication detail: without coma Diabetes mellitus type: type 1 Qualified Code(s): E10.10 - Type 1 diabetes mellitus with ketoacidosis without coma Code(s): E11.10 - Type 2 diabetes mellitus with ketoacidosis without coma Status: Resolved Assessment and Plan: Treated in Icu for DKA, pt moved to medical floor. Pt is increased to Regular insulin 15 units BID. Pt known to have brittle diabetes. (2) Diabetes: Qualifiers: Diabetes mellitus complication status: with hyperglycemia Diabetes mellitus remote computer terminal operator insulin use: with fpc use Diabetes mellitus type: type 2 Qualified Code(s): E11.65 - Type 2 diabetes mellitus with hyperglycemia; Z79.4 - marine oil terminal superintendent (current) use of insulin Code(s): E11.9 - Type 2 diabetes mellitus without complications Status: Acute Assessment and Plan: Poor control and poor compliance. (3) Acute metabolic encephalopathy: Code(s): G93.41 - Metabolic encephalopathy Status: Resolved Assessment and Plan: Mild confusion. CT brain in ER with no acute changes. Result of DKA. (4) Acute kidney injury: Code(s): N17.9 - Acute kidney failure, unspecified Status: Resolved Assessment and Plan: Likely due to dehydration. (5) Acidosis, lactic: Code(s): E87.2 - Acidosis Status: Acute Assessment and Plan: Lactic acid @3 (6) Noncompliance: Code(s): Z91.19 - Patient's noncompliance with other medical treatment and regimen Status: Acute Assessment and Plan: Pt advised about compliance (7) Elevated LFTs: Code(s): R94.5 - Abnormal results of liver function studies Status: Acute Assessment and Plan: Elevated on admission with AST 60 and ALT 133. Hepatitis screen is negative. (8) Hypothyroidism: Qualifiers: Hypothyroidism type: unspecified Qualified Code(s): E03.9 - Hypothyroidism, unspecified Code(s): E03.9 - Hypothyroidism, unspecified Status: Acute Assessment and Plan: TSH was elevated on last visit. Pt will need new prescription for levothyroxine 88 mcg at discharge. (9) MRSA nasal colonization: Code(s): Z22.322 - Carrier or suspected carrier of Methicillin resistant Staphylococcus aureus Status: Acute Assessment and Plan: MRSA nasal culture positive. Patient now on isolation. Bactroban to nares to complete a 5 day course. (10) DVT prophylaxis: Code(s): Z29.9 - Encounter for prophylactic measures, unspecified Status: Acute Assessment and Plan: Lonveox. Subjective Date/time seen: 12/07/19 12:59 Interval history: Admitted with DKA. Recently hospitalized for same with patient leaving [facility] on 11/28/2019. Pt states his sugars are always hard to control, has brittle diabetes. hbaic is 13. Mornings sugars are high today @340s. No other complaints. Pt has history of CHALO and hypothyroidism. Pt has ileal cecal anastomosis. Bc is negative. lactic level is high. Wcc is NL. Potassium is high. Review of Systems Review of Systems: All systems reviewed & are unremarkable except as noted in HPI and below Exam Narrative: Exam Narrative: Awake and alert. Pleasant Const: General: no acute distress; No confusion Orientation/consciousness: patient oriented x3 and No confusion Cardio: Rate: regular rate Rhythm: regular rhythm GI: Inspection: non-distended and other (abdominal surgery ) Neuro: General: patient oriented x3 and No confusion Cognition (Neuro): normal cognition Speech: normal speech Extrem: General: no edema Psych: Mental Status: mental status grossly normal Attitude: cooperative Objective Data Vital Signs Vital Signs: Vital Signs - 24 hr 12/06/19 14:00 12/06/19 20:12 12/07/19 05:22 Temperature 36.6 C 36.2 C L 36.4 C Pulse Rate 77 84 70 Res
[2019-12-07 14:59] LABS: Potassium 4.1 mmol/L (3.4-5.0)
[2019-12-07 16:13] VITALS: BP 112/78; RESP 16; TEMP 36.2; O2SAT 100
[2019-12-07 16:22] LABS: Glucose Point of Care 362 (65-105)
[2019-12-07] MEDS: INSULIN HUMAN ISOPHAN/REGULAR 70/30 (*BKC) 100 UNITS/ML 15 UNITS SUB-Q (16:55)
[2019-12-07 20:21] VITALS: BP 114/85; PULSE 86; RESP 16; TEMP 36.3; O2SAT 100
[2019-12-07 20:31] LABS: Glucose Point of Care 196 (65-105)
[2019-12-07 21:58] LABS: Glucose Point of Care 154 (65-105)
[2019-12-08 02:04] LABS: Glucose Point of Care 134 (65-105)
[2019-12-08 05:31] VITALS: BP 120/83; PULSE 80; RESP 14; TEMP 37; O2SAT 99
[2019-12-08] MEDS: LEVOTHYROXINE SODIUM 88 MCG TABLET PO (05:34)
[2019-12-08 06:16] LABS: Glucose Point of Care 118 (65-105)
[2019-12-08 07:56] LABS: Glucose Point of Care 85 (65-105)
[2019-12-08 08:00] VITALS: BP 138/100; PULSE 90; RESP 20; TEMP 36.3; O2SAT 99
[2019-12-08] MEDS: INSULIN HUMAN ISOPHAN/REGULAR 70/30 (*BKC) 100 UNITS/ML 15 UNITS SUB-Q ×2 (08:09→17:01)
[2019-12-08] MEDS: GABAPENTIN 400 MG CAPSULE PO ×3 (08:11→17:01)
[2019-12-08] MEDS: PANTOPRAZOLE 40 MG TABLET PO (08:11)
[2019-12-08 08:12] VITALS: RESP 20; O2SAT 99
[2019-12-08] MEDS: ENOXAPARIN 40 MG/0.4 ML SYRINGE SUB-Q (08:12)
[2019-12-08] MEDS: MUPIROCIN 2% OINT 22 GM TUBE 1 APPLIC EACH NARE (08:12)
[2019-12-08 10:02] VITALS: PULSE 90; RESP 20; O2SAT 99
[2019-12-08 11:46] LABS: Glucose Point of Care 181 (65-105)
--- NOTE | 2019-12-08 12:26 | PM.DS ---
DS: Diagnosis Admitting Diagnosis Admitting Diagnosis: Type 1 diabetes mellitus with ketoacidosis without coma Discharge Diagnosis (1) DKA (diabetic ketoacidoses): Qualifiers: Diabetes mellitus type: type 1 Diabetes mellitus complication detail: without coma Qualified Code(s): E10.10 - Type 1 diabetes mellitus with ketoacidosis without coma Code(s): E11.10 - Type 2 diabetes mellitus with ketoacidosis without coma Status: Resolved Assessment and Plan: Treated in Icu for DKA. Pt is increased to Regular insulin 15 units BID. Pt known to have brittle diabetes. Sugars seem to be more stable. Pt will watch his sugars at home closely. (2) Diabetes: Qualifiers: Diabetes mellitus type: type 2 Diabetes mellitus equipment operator intermodal yard insulin use: with equipment operator intermodal yard use Diabetes mellitus complication status: with hyperglycemia Qualified Code(s): E11.65 - Type 2 diabetes mellitus with hyperglycemia; Z79.4 - intermission coordinator (current) use of insulin Code(s): E11.9 - Type 2 diabetes mellitus without complications Status: Acute Assessment and Plan: Poor control and poor compliance. (3) Acute metabolic encephalopathy: Code(s): G93.41 - Metabolic encephalopathy Status: Resolved Assessment and Plan: Mild confusion. CT brain in ER with no acute changes. Result of DKA. (4) Acute kidney injury: Code(s): N17.9 - Acute kidney failure, unspecified Status: Resolved Assessment and Plan: Likely due to dehydration. (5) Acidosis, lactic: Code(s): E87.2 - Acidosis Status: Acute Assessment and Plan: Lactic acid @3, wcc normal. (6) Noncompliance: Code(s): Z91.19 - Patient's noncompliance with other medical treatment and regimen Status: Acute Assessment and Plan: Pt advised about compliance (7) Elevated LFTs: Code(s): R94.5 - Abnormal results of liver function studies Status: Acute Assessment and Plan: Elevated on admission with AST 60 and ALT 133. Hepatitis screen is negative. (8) Hypothyroidism: Qualifiers: Hypothyroidism type: unspecified Qualified Code(s): E03.9 - Hypothyroidism, unspecified Code(s): E03.9 - Hypothyroidism, unspecified Status: Acute Assessment and Plan: TSH was elevated on last visit. Pt will need new prescription for levothyroxine 88 mcg at discharge. (9) MRSA nasal colonization: Code(s): Z22.322 - Carrier or suspected carrier of Methicillin resistant Staphylococcus aureus Status: Acute Assessment and Plan: MRSA nasal culture positive. Bactroban to nares to complete a 5 day course. DS: Summary Time Spent with Patient Time attestation: Total time spent providing and/or coordinating discharge services:38 minutes on day of discharge Exam Narrative: Exam Narrative: Awake and alert. Pleasant Const: General: no acute distress; No confusion Orientation/consciousness: patient oriented x3 and No confusion HENMT: Mouth: Yes moist mucous membranes Neck: Neck: supple Lymphatic: lymphadenopathy not noted Resp: Auscultation: clear to auscultation bilaterally, no rales and no wheezes Cardio: Rate: regular rate Rhythm: regular rhythm GI: Inspection: non-distended and other (abdominal surgery ) Auscultation: normal bowel sounds Skin: General skin exam: no rashes or lesions noted Other: Small open area at top of old midline incision Neuro: General: patient oriented x3 and No confusion Cognition (Neuro): normal cognition Speech: normal speech Extrem: General: no edema Psych: Mental Status: mental status grossly normal Attitude: cooperative DS: Data Data Completed and Pending Labs on day of discharge: Labs from last 24 hours 12/08/19 12/08/19 12/08/19 11:43 07:50 06:14 Potassium POC Capillary Glucose 181 H 85 118 H 12/08/19 12/07/19 12/07/19 02:01 21:55 20:27 Potassium POC Capillar
--- NOTE | 2019-12-08 14:40 | PCDIET ---
Nutrition Follow-Up Complete: Altered nutrition related labs related to diabetes mellitus as evidenced by serum glucose of 163mg/dL. Patient to consume 50% of meals or greater. Goal:Goal met. Continue current goal. Pt current nutrition is [facility]. Nutrition recommendation:Agree Last recorded weight is 64.2 kg (up from assessed wt of 57.8kg) Bowel Motility: Normal BM 12/06 Labs Reviewed: Glucose 181 Meds Noted:PPI, Novolin Additional Notes: Plans for d/c today. Pt eating well with good appetite on an appropriate diet. [facility] diet education provided on 11/27. No further nutrition needs at this time. If pt remains inpatient, we will f/u in seven days.
[2019-12-08 16:00] VITALS: BP 144/63; PULSE 87; RESP 18; TEMP 36.5; O2SAT 99
[2019-12-08 17:01] LABS: Glucose Point of Care 151 (65-105)
== END 2019-12-08 17:15 | disposition home or self-care (01) ==
LOC: ANHED 21:59 → ANHICU 22:50 → ANH3MED 12-05 23:30 → ANHICU 12-09 09:06
PROVIDERS: Hospitalist; Admitting Provider Internal Medicine; Emergency Provider Emergency Medicine; Visit Provider Family Medicine
DX: E10.10 Type 1 diabetes mellitus with ketoacidosis without coma (principal); E10.40 Type 1 diabetes mellitus with diabetic neuropathy, unspecified; G93.41 Metabolic encephalopathy; N17.9 Acute kidney failure, unspecified; E03.9 Hypothyroidism, unspecified; F17.210 Nicotine dependence, cigarettes, uncomplicated; R74.8 Abnormal levels of other serum enzymes; Z22.322 Carrier or suspected carrier of Methicillin resistant Staphylococcus aureus; Z79.4 Long term (current) use of insulin; Z91.19 Patient's noncompliance with other medical treatment and regimen
CPT/HCPCS: 36415; 36600; 51701; 70450; 71045; 80048; 80053; 80074; 80076; 80307; 81001; 82010; 82140; 82550; 82607; 82746; 82805; 82948; 83605; 83735; 84100; 84132; 85025; 85027; 87040; 87081; 93005; 96361; 96365; 96366; 96368; 96372; 96374; 96375; 99291; A9270; C9113; G0378; G0379; J1650; J1815; J3480; J7030

== ENCOUNTER 2020-01-21 10:33 | Emergency (ER) | payer BC, SELFPAY ==
[2020-01-21 10:32] VITALS: BP 138/91; PULSE 86; RESP 16; TEMP 36.7; O2SAT 98
[2020-01-21 10:45] LABS: Glucose Point of Care > 500 (65-105)
--- NOTE | 2020-01-21 11:12 | PC.NURSE ---
Pt has decided to leave [place] after several attempts to obtain IV and draw labs. Pt understands the risks.
[2020-01-21 11:13] VITALS: BP 129/69; PULSE 89; RESP 20; O2SAT 98
[2020-01-21 11:26] LABS: Beta-Hydroxybutyrate/Acetoacetate 0.52 mmol/L (0.02-0.27)
[2020-01-21 11:27] LABS: Alanine Aminotransferase 114 U/L (4-50); Albumin Level 4.7 g/dL (3.5-5.1); Alkaline Phosphatase 439 U/L (38-126); Aspartate Amino Transferase 141 U/L (17-59); Bilirubin,Total 0.5 mg/dL (0.2-1.3); Blood Urea Nitrogen 29 mg/dL (9-20); Calcium 10.4 mg/dL (8.4-10.2); Carbon Dioxide 24 mmol/L (22-30); Chloride 91 mmol/L (98-107); Estimated CRCL calculation 82 ml/min; Estimated Glomerular Filt Rate > 60; Magnesium 1.8 mg/dL (1.6-2.3); Phosphorus 4.2 mg/dL (2.5-4.5); Potassium 5.1 mmol/L (3.4-5.0); Sodium 129 mmol/L (137-145)
[2020-01-21 11:38] LABS: Glucose 705 mg/dL (75-110)
== END 2020-01-21 11:15 | disposition left against medical advice (07) ==
LOC: ANHED 10:53
PROVIDERS: Emergency Medicine; PCP Nurse Practitioner Family
DX: E10.65 Type 1 diabetes mellitus with hyperglycemia (principal)
CPT/HCPCS: 36415; 80053; 82010; 82948; 83735; 84100; 99199